=== PATIENT | male | born 1960 | race Caucasian/White ===

== ENCOUNTER 2017-03-26 14:24 | Inpatient (IN) | payer BC ==
[2017-03-26] MEDS ORDERED: Insulin REGULAR(*) 1 UNITS UNIT ONE (14:34)
[2017-03-26] MEDS ORDERED: Insulin REGULAR(*) 1 UNITS UNIT IV PUSH ONE (14:35)
[2017-03-26] MEDS: NS 0.9% 1000 ML* 2,000 ML IV ONE ×2 (14:36→14:53)
[2017-03-26] MEDS ORDERED: NS 0.9% 1000 ML* 3,000 ML IV ONE ×2 (14:50)
[2017-03-26 14:52] LABS: PCO2 Arterial < 20 mmHg (35-45)
[2017-03-26] MEDS: Insulin REGULAR(*) 100 UNITS in NS 0.9% 100 ML* 100 ML IV SCH (14:53)
[2017-03-26 14:56] LABS: ALT 12 U/L (7-52); AST 11 U/L (13-39); Albumin 3.7 g/dL (3.2-5.2); Alkaline Phosphatase 121 U/L (34-104); BUN/Creatinine Ratio 19.1 (8-20); Blood Urea Nitrogen 74 mg/dL (6-24); Calcium 9.3 mg/dL (8.6-10.3); Chloride 79 mmol/L (101-111); Creatine Kinase 61 U/L (10-223); EGFR African American 20.9 (>60); EGFR Non-African American 16.3 (>60); Globulin 2.8 g/dL (2-4); Magnesium 3.8 mg/dL (1.9-2.7); Sodium 123 mmol/L (133-145); Total Protein 6.5 g/dL (6.4-8.9)
[2017-03-26 14:57] LABS: Ammonia 49 mol/L (16-53)
[2017-03-26 15:00] LABS: B Type Natriuretic Peptide 233 pg/mL
[2017-03-26] MEDS ORDERED: fentaNYL* 50 MCG/ML 2 ML VIAL (100 MCG VIAL) ONE (15:04)
[2017-03-26] MEDS ORDERED: fentaNYL* 50 MCG/ML 2 ML VIAL (100 MCG VIAL) IV SLOW PU ONE ×2 (15:06→15:41)
[2017-03-26 15:15] LABS: Lipase 850 U/L (11.0-82.0)
[2017-03-26 15:16] LABS: CO2 Carbon Dioxide < 7 mmol/L (22-32); Glucose 1686 mg/dL (70-100); Potassium 7.5 mmol/L (3.5-5.0)
--- NOTE | 2017-03-26 15:17 | RAD ---
INDICATION: Altered mental status COMPARISON: None TECHNIQUE: An AP portable view obtained at 1450 hours is submitted. FINDINGS: Bones/Soft Tissues: There are no acute bony findings. There is no endotracheal tube in satisfactory position 4 cm above the betty. An orogastric tube passes normally through the mediastinum. Cardiomediastinal: The cardiomediastinal silhouette is normal. Lungs: There are no infiltrates. Pleura: There are no pleural effusions. Other: None IMPRESSION: ENDOTRACHEAL AND OROGASTRIC TUBES POSITIONED DESCRIBED. LUNGS CLEAR
[2017-03-26 15:21] LABS: Hematocrit 56 % (42-52); Hemoglobin 14.8 g/dl (14.0-18.0); Mean Corpuscular HGB Conc 27 g/dl (31-36); Mean Corpuscular Hemoglobin 30 pg (27-31); Mean Platelet Volume 10 um3 (7.4-10.4); Red Blood Count 4.93 10^6/ul (4.0-5.4); Red Cell Distribution Width 15 % (10.5-15); White Blood Count 25.2 10^3/ul (3.5-10.8)
[2017-03-26 15:23] LABS: Acetaminophen < 15 mcg/mL; Alcohol < 10 mg/dL (<10); Comments Flag Yes; Salicylate < 2.50 mg/dL (<30)
[2017-03-26 15:24] LABS: Urine Bacteria Absent (Absent); Urine Bilirubin Negative (Negative); Urine Glucose 3+(>=500 mg/dL) (Negative); Urine Nitrite Negative (Negative)
[2017-03-26 15:24] LABS: Add Diff/Slide Review? Slide Review Added; Mean Corpuscular Volume 113 fL (80-94)
[2017-03-26 15:25] LABS: Benzodiazepine Urine Screen None Detected (None Detect)
[2017-03-26 15:34] LABS: TSH (Thyroid Stimulating Horm) 2.28 mcIU/mL (0.34-5.60)
--- NOTE | 2017-03-26 15:34 | RAD ---
HISTORY: Unresponsive, possible diabetic ketoacidosis COMPARISONS: None TECHNIQUE: Multiple contiguous axial CT scans were obtained of the head without intravenous contrast. FINDINGS: HEMORRHAGE/INFARCT: There is no hemorrhage or acute infarct. MASSES/SHIFT: There is no mass or shift. EXTRA-AXIAL SPACES: There are no extra-axial fluid collections. SULCI AND VENTRICLES: The sulci and ventricles are normal in size and position for the patient's stated age. CEREBRUM: There are no focal parenchymal abnormalities. BRAINSTEM: There are no focal parenchymal abnormalities. CEREBELLUM: There are no focal parenchymal abnormalities. VESSELS: The vessels are grossly normal. PARANASAL SINUSES: There is mucosal thickening of the ethmoid air cells. ORBITS: The orbits are unremarkable. BONES AND SOFT TISSUE: No bone or soft tissue abnormalities are noted. OTHER: None IMPRESSION: NO ACUTE INTRACRANIAL PATHOLOGY.
--- NOTE | 2017-03-26 15:35 | HP ---
H&P (Free Text) History and Physical: CRITICAL CARE MEDICINE DATE: 03/26/17 TIME: 1440 PRIMARY CARE PROVIDER: in [place] REFERRING PROVIDER: Kristina REASON/CHIEF COMPLAINT: dka? HISTORY OF PRESENT ILLNESS: 57 type 1 DM presenting with unresponisve call at his ex-wifes house. According to her, pt came to stay with her last night and had been using more insulin lately as his sugars were apparently high. She saw him last pm and thought he was ok but not perfect. She was in hospital with boyfriend last pm and home around 2am and thought again he was ok. This am he was staggering about and not making a lot of sense to her. He went to lay down in bad and was heavily breathing but less responsive. She called her daughter, Maritza, pts proxy and EMS summoned. Pt with poor responses in field given 250mg ketamine but advanced airway unable to be passed. Procedure deferred to ED. ON presentation pt with some non-purposeful movement and moaning to pain but not protecting airway. About 2L NS in and intubation performed to maintain airway. REVIEW OF SYSTEMS: As per HPI. PAST MEDICAL HISTORY: As per HPI. DM, marijuna use in past. depression. htn. MEDICATIONS: Reviewed. Daughter states he is taking lantus, metoprolol? but will need to confirm meds ALLERGIES: Reviewed. None. SOCIAL HISTORY: Reviewed. 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 PHYSICAL EXAM: Vital Signs: Reviewed. Neurologic: coma; GCS <8. HEENT: anicteric, pupils small but reactive and eq Cardiovascular: tachy 130s, no m Respiratory: rhonchi on R; tachypnea inc with more fluids. R pectorial scarring Abdomen: accessory muscle use otherwise no masses. Extremities: warm, dry; poor skin hygiene Access: 2 piv LABS: Reviewed. IMAGING: Reviewed. MEDICATIONS: Reviewed. ASSESSMENT: 57 M severe DKA with coma on admission MARY ALICE - much of this prerenal LA sec to above Leukocytosis, lipase, troponin, K all elevated sec to above PLAN: Neurologic: check head CT given speed to his coma and ensure no intracranial ailemnt as exam limited. prop for comfort. Cardiovascular: Malperfused. Intravascular < Interstitially < Cellularly volume deficient. NS 8L, then LR, and then towards D51/2NS during his course. T mild given acidosis. can eval one again later but unlikely anything type 1. needs central access Respiratory: needing airway given aspiration and poor airway control and lacking compensation. Allow larger volumes and protect with pressure to avoid vili. May blossum from aspiration but cxr ok at present. vent bundle. Gastrointestinal: ogt. sup. Renal/Metabolic: Electrolyte derangement. f/u LA clearance and K, phos replacement. yeager. Infectious Disease: no signs of empiric abx needs as DKA seems to be primary without any evidence towards infection. could meet criteria for pancreatitis but tx same for now and see how he does clinically as again doubt this is primary, nor would it need abx. CXR clear. UA neg. can check rapid flu due to timing. Hematology: Hemoconcentrated. hsq Endocrine: insulin gtt and dka management per orders. Musculoskeletal: bedrest today. Psych/Social: ex , and daughter updated via phone. Supportive and preventative care as ordered. Vaccine: f/u needs SUP: ppi VTE prophylaxis: heparin Yeager catheter given critical illness, monitoring needs for accurate assessment of MARY ALICE and KDIGO criteria for critically ill patients and to avoid potential harms of urinary retention, skin breakdown/ulcers. Disposition: ICU Code Status: Full Critical Care Time: 55min Arun Arroyo DO
[2017-03-26 15:37] LABS: Troponin I 0.06 ng/mL (<0.04)
[2017-03-26] MEDS ORDERED: Midazolam* 1 MG/ML 10 ML VIAL (10 MG) IV ONE (15:41)
[2017-03-26] MEDS ORDERED: Acetaminophen ADULT LIQ* 650 MG/20.3 ML UDC PO PRN (15:43)
[2017-03-26] MEDS ORDERED: fentaNYL* 50 MCG/ML 2 ML VIAL (100 MCG VIAL) IV SLOW PU PRN (15:44)
[2017-03-26] MEDS ORDERED: Midazolam* 1 MG/ML 10 ML VIAL (10 MG) ONE (15:48)
[2017-03-26] MEDS ORDERED: Propofol* 100 ML ONE (15:49)
--- NOTE | 2017-03-26 15:56 | ED ---
Luis Angel Oquendo Benjamin, scribed for Dannie Acevedo MD on 03/26/17 at 1457 . Altered Mental Status - HPI Summary HPI Summary: 57yo male BIBA for AMS. Pt was found confused and obtunded by family this morning. Pt was last seen normal last night and family called 911 as pt was unresponsive even to stimuli. Unknown downtime. Per EMS report, pt was found unresponsive but agitated. Pt was unresponsive to painful stimuli and 250mg ketamine and 1000ml IV NS was given. No signs of trauma were noted. Pt is a known DM1 pt, and per family, pt has been struggling with high BG the last few days and pt seemed slightly altered last night. Intubation was attempted by EMS , but unable to intubate since pts airway was too dry. Initial O2 sat was 66% . Per family, no evidence of trauma or overdose. 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 Hx From Patient Unobtainable Due To: Altered Mental Status - LEVEL 5 CAVEAT - AMS, unresponsive Onset/Duration: Unknown Severity Initially: Severe Severity Currently: Severe Character: Responsiveness - unresponsive Aggravating Factor(s): Unknown Alleviating Factor(s): Unknown - Risk Factors Cardiac Risk Factors: Diabetes - DM1 - Allergies/Home Medications Allergies/Adverse Reactions: Allergies Allergy/AdvReac Type Severity Reaction Status Date / Time No Known Allergies Allergy Verified 03/26/17 14:32 PMH/Surg Hx/FS Hx/Imm Hx Endocrine/Hematology History: Reports: Hx Diabetes - DM1 Cardiovascular History: Reports: Hx Hypertension Denies: Hx Pacemaker/ICD Sensory History: Denies: Hx Hearing Aid Psychiatric History: Reports: Hx Depression Denies: Hx Eating Disorder, Hx Panic Disorder, Hx of Violent Episodes Against Others - Surgical History Surgery Procedure, Year, and Place: LT HAND SURGERY. LSP SURGERY. RT KNEE SURGERY Infectious Disease History: No Infectious Disease History: Denies: Hx Clostridium Difficile, Hx Hepatitis, Hx Human Immunodeficiency Virus (HIV), Hx Tuberculosis, Traveled Outside the [place] in Last 30 Days - Family History Known Family History: Positive: Unknown - LEVEL 5 CAVEAT - AMS, unresponsive - Social History Alcohol Use: Rare Alcohol Amount: 3 beers per month Substance Use Type: Reports: Marijuana Hx Tobacco Use: Yes Smoking Status (MU): Heavy Every Day Tobacco Smoker Type: Cigarettes Have You Smoked in the Last Year: Yes Review of Systems - ROS Summary Review of Systems Summary: LEVEL 5 CAVEAT - AMS, unresponsive All Other Systems Reviewed And Are Negative: No Physical Exam - Summary Physical Exam Summary: LEVEL 5 CAVEAT - AMS, unresponsive General: obtunded Eyes: pupils are 4mm wide and unreactive to light Neck: supple, nontender Respiratory: Edgar maul breathing, lungs clear Cardiovascular: Tachycardia Abdomen: soft, nontender, non-distended Bowel: hypoactive bowel sounds Musculoskeletal: normal, strength/ROM intact. Moves all four extremities Neurological: AMS Triage Information Reviewed: Yes Vital Signs On Initial Exam: Initial Vitals Temp Pulse Resp BP Pulse Ox 99.1 F 137 40 150/89 95 03/26/17 14:28 03/26/17 14:28 03/26/17 14:28 03/26/17 14:28 03/26/17 14:28 Vital Signs Reviewed: Yes Procedures - Procedure Summary Procedure Summary: Procedure note - Intubation Pt was not protecting his airway. So he was given 10mg versed IV and was intubated with #8 ET tube. 22cm at the gum and pt had good color change. Breath sound was heard bilaterally. Diagnostics - Vital Signs Vital Signs Temp Pulse Resp BP Pulse Ox 03/26/17 14:33 133 28 134/115 99 03/26/17 14:31 75 27 97 03/26/17 14:28 99.1 F 137 40 150/89 95 - Laboratory Lab Results: Lab Results 03/26/17 Range/Units 14:30 ABG pH Pending ABG pCO2 Pending ABG pO2 213 H (80-100) mmHg ABG HCO3 Pending ABG O2 Saturation 99.4 H (95-98) % ABG Base Excess -26.2 L (-2.0-2.0) Result Diagrams: 03/26/17 14:30 03/26/17 14:30 Lab Statement: Any lab studies that have been ordered have been reviewed, and results considered in the medical decision making process. Altered Mental Statu Course/Dx - Course Course Of Treatment: INTUBATED ET TUBE SIZE 8. ADMIT ICU. DR ARAGON SAW PATIENT IN ED. - Diagnoses Discharge Diagnoses: DKA (diabetic ketoacidoses), Respiratory failure - Critical Care Time Critical Care Time: 30-74 min Discharge - Discharge Plan Condition: Guarded Disposition: ADMITTED TO [facility] documentation as recorded by the Luis Angel mueller Benjamin accurately reflects the service I personally performed and the decisions made by me, Dannie Acevedo MD.
[2017-03-26 15:57] LABS: Immature Granulocytes 16 % (0-9); Neutrophil % 74 % (38-83); RBC Morphology Normal (Normal)
[2017-03-26] MEDS: NS 0.9% 1000 ML* 1,000 ML IV SCH ×2 (16:21→17:16)
--- NOTE | 2017-03-26 16:22 | PN ---
Progress Note - Progress Note Date of Service: 03/26/17 Note: CRITICAL CARE MEDICINE PROCEDURE NOTE DATE: 03/26/17 TIME: 1600 SERVICE: Critical Care Medicine LOCATION OF PROCEDURE: ICU PROCEDURE: Central line insertion PROCEDURALIST: Dr. Arroyo Consent obtain: No, procedure performed emergently Time out held: Yes INDICATION: severe dka, needing fluid resuscitation and frequent labs in critical pt. PROCEDURE: Oxygenation maintained and vitals monitored. Patient in trendelenberg position. Pre-medication already with intubation. SITE: RIGHT Subclavian Site preparation with chlorhexidine locally. Full sterile drape, gown, hat, mask, gloves. 5ml 1% Lidocaine utilized at incision site. required two sticks with step down on clavical. Standard sterile Seldinger technique utilized and catheter was inserted to 16cm and sutured in place. Good blood return. Minimal blood loss. Site dressed with tegaderm. Portable chest x-ray pending. Patient otherwise tolerated well. Arun Arroyo,
--- NOTE | 2017-03-26 17:07 | RAD ---
HISTORY: Status post right subclavian line placement COMPARISONS: March 26, 2017 at 2:49 PM VIEWS: 1: frontal portable view of the chest at 4:33 PM FINDINGS: LINES AND TUBES: An endotracheal tube is noted with the tip overlying the trachea between the clavicles and the betty. A gastric tube is noted, with the tip in the left upper quadrant in a prepyloric position.. A right subclavian venous catheter is noted with the tip overlying the superior vena cava. CARDIOMEDIASTINAL SILHOUETTE: The cardiomediastinal silhouette is normal for portable technique. PLEURA: There is a right apical pleural cap new from the previous examination. LUNG PARENCHYMA: The lungs are clear. ABDOMEN: The upper abdomen is clear. There is no subphrenic gas. BONES AND SOFT TISSUES: No bone or soft tissue abnormalities are noted. IMPRESSION: THERE HAS BEEN INTERVAL PLACEMENT OF A RIGHT-SIDED VENOUS CATHETER WITH A RIGHT APICAL PLEURAL CAP CONCERNING FOR HEMATOMA. PRELIMINARY FINDINGS WERE DISCUSSED WITH DR. ARAGON AT APPROXIMATELY 5:03 PM ON MARCH 26, 2017.
[2017-03-26] MEDS: Propofol* 100 ML IV SCH ×3 (17:16→22:34)
[2017-03-26] MEDS: Pantoprazole IV* 40 MG IV SCH (17:47)
[2017-03-26] MEDS: Chlorhexidine MOUTHWASH 0.12%* 15 ML UDC TOPICAL SCH ×2 (17:53→20:09)
[2017-03-26 18:36] LABS: Venous Bicarbonate HCO3 11.2 mmol/L (24-28)
[2017-03-26 18:50] LABS: BUN/Creatinine Ratio 22.4 (8-20); Calcium 7.3 mg/dL (8.6-10.3); EGFR African American 31.4 (>60); EGFR Non-African American 24.4 (>60)
[2017-03-26] MEDS: Heparin VIAL(*) 5000 UNITS/ML VIAL (FIVE THOUSAND) SUBCUT SCH (21:42)
[2017-03-26 22:10] LABS: BUN/Creatinine Ratio 22.6 (8-20); EGFR African American 34.3 (>60); EGFR Non-African American 26.7 (>60); Phosphorus 3.6 mg/dL (2.5-5.0); Potassium 4.4 mmol/L (3.5-5.0)
[2017-03-26] MEDS: D5W 1/2 NS KCl 20 Meq 1000 ML* 1,000 ML IV SCH (23:11)
[2017-03-27] MEDS: Propofol* 100 ML IV SCH ×4 (01:11→08:36)
[2017-03-27] MEDS: Chlorhexidine MOUTHWASH 0.12%* 15 ML UDC TOPICAL SCH ×3 (01:16→09:38)
[2017-03-27] MEDS: Insulin REGULAR(*) 100 UNITS in NS 0.9% 100 ML* 100 ML IV SCH (01:48)
[2017-03-27 05:29] LABS: Hematocrit 41 % (42-52); Hemoglobin 13.8 g/dl (14.0-18.0); Mean Corpuscular HGB Conc 34 g/dl (31-36); Mean Corpuscular Hemoglobin 30 pg (27-31); Mean Corpuscular Volume 89 fL (80-94); Mean Platelet Volume 9 um3 (7.4-10.4); Red Blood Count 4.57 10^6/ul (4.0-5.4); Red Cell Distribution Width 14 % (10.5-15); White Blood Count 9.4 10^3/ul (3.5-10.8)
[2017-03-27 05:44] LABS: Albumin 3.1 g/dL (3.2-5.2); BUN/Creatinine Ratio 26.3 (8-20); Calcium 7.9 mg/dL (8.6-10.3); EGFR African American 48.8 (>60); EGFR Non-African American 37.9 (>60); Globulin 2.2 g/dL (2-4); Magnesium 2.9 mg/dL (1.9-2.7); Phosphorus 3.1 mg/dL (2.5-5.0); Potassium 4.5 mmol/L (3.5-5.0); Total Bilirubin 0.2 mg/dL (0.2-1.0); Total Protein 5.3 g/dL (6.4-8.9)
[2017-03-27] MEDS: D5W 1/2 NS KCl 20 Meq 1000 ML* 1,000 ML IV SCH (05:49)
[2017-03-27] MEDS: Heparin VIAL(*) 5000 UNITS/ML VIAL (FIVE THOUSAND) SUBCUT SCH ×3 (05:50→21:34)
[2017-03-27] MEDS ORDERED: Insulin GLARGINE(*) 1 UNITS UNIT SUBCUT SCH (09:00)
[2017-03-27] MEDS: Nicotine PATCH 14 MG/24 HR* PATCH TRANSDERM SCH (09:41)
[2017-03-27] MEDS: Pantoprazole IV* 40 MG IV SCH (09:41)
[2017-03-27] MEDS ORDERED: Albuterol/Ipratropium NEB.SOL* Albuterol 2.5 MG/Ipratropium 0.5 MG 3 ML ONE (10:59)
--- NOTE | 2017-03-27 11:07 | PN ---
Progress Note - Progress Note Date of Service: 03/27/17 Note: CRITICAL CARE MEDICINE DATE: 03/27/17 TIME: 915 PRIMARY CARE PROVIDER: misha Annera Dr. Iyer. SUBJECTIVE: Patient seen and examined. Daughter at bedside. PHYSICAL EXAM: Vital Signs: Reviewed. Neurologic: awakens off prop, not following commands but quite agitated at times and encephalopathy HEENT: anicteric, pupils small but reactive Cardiovascular: reg, no m Respiratory: cler bl; no wheeze, nor rales, good vol. 30% Abdomen: soft, old scaring Extremities: warm Access: R subcl cvc LABS: Reviewed. IMAGING: Reviewed. MEDICATIONS: Reviewed. ASSESSMENT: 57 M severe DKA with coma on admission Metabolic encephalpathy Acute hypoxic resp failure - improved Aspiration pneumonitis MARY ALICE - improving (Cr in dec was 0.93) LA cleared Tobacco abuse DM Neuropathy PLAN: Neurologic: better but some lingering metabolic encephalopathy likely Cardiovascular: better overall hydration. perfused well. fluids adjusted Respiratory: resp status better. underlying copd but corrected as well as can be post aspiration; liberate today. copd adjunctives from there. Gastrointestinal: ogt. sup. Renal/Metabolic: Electrolyte derangement better and mary alice better but still needs fluid today. Infectious Disease: no signs of infection. Hematology: Hemoconcentrated. hsq Endocrine: insulin gtt off and on lantus. ssi q4. f/u pump needs with resumed po. Musculoskeletal: oob later today. Psych/Social: daughter updated Supportive and preventative care as ordered. Vaccine: f/u needs SUP: po later VTE prophylaxis: heparin Underwood catheter given critical illness, monitoring needs for accurate assessment of MARY ALICE and KDIGO criteria for critically ill patients and to avoid potential harms of urinary retention, skin breakdown/ulcers. Disposition: ICU Code Status: Full Critical Care Time: 35min Arun Arroyo DO
[2017-03-27] MEDS ORDERED: Albuterol/Ipratropium NEB.SOL* Albuterol 2.5 MG/Ipratropium 0.5 MG 3 ML INH PRN (11:13)
[2017-03-27] MEDS: Insulin REGULAR(*) 1 UNITS UNIT SUBCUT SCH ×4 (12:19→23:51)
--- NOTE | 2017-03-27 12:32 | RAD ---
Indication: Shortness of breath. Single frontal view of the chest performed at 1110 hours was reviewed. Comparison is made with previous exam dated March 26, 2017. No mediastinal shift is noted. Hyperinflated lung tolentino are noted. No definite alveolar consolidation is noted. Central PICC line is in place. IMPRESSION: HYPERINFLATED LUNG TOLENTINO WITH NO DEFINITE PNEUMONIA.
[2017-03-27] MEDS: NS 0.45% KCl 20 Meq 1000 ML* 1,000 ML IV SCH ×2 (14:34→23:45)
[2017-03-27] MEDS ORDERED: Midazolam* 1 MG/ML 10 ML VIAL (10 MG) ONE (14:42)
[2017-03-27] MEDS ORDERED: Succinylcholine* 20 MG/ML 10 ML VIAL ONE (14:42)
[2017-03-27] MEDS ORDERED: Etomidate* 2 MG/ML 20 ML VIAL (40 MG) ONE (14:42)
[2017-03-27] MEDS ORDERED: traZODone TAB* 100 MG PO PRN (16:19)
[2017-03-27] MEDS ORDERED: LORazepam TAB(*) 1 MG PO PRN (16:20)
[2017-03-27] MEDS ORDERED: Insulin GLARGINE(*) 1 UNITS UNIT SUBCUT ONE (16:30)
[2017-03-27] MEDS: Atorvastatin* 40 MG TAB PO SCH (20:18)
[2017-03-27] MEDS: Nicotine Patch Removal NOTE PATCH OFF SCH (20:18)
[2017-03-28] MEDS: Insulin REGULAR(*) 1 UNITS UNIT SUBCUT SCH ×6 (04:04→20:39)
[2017-03-28] MEDS: Heparin VIAL(*) 5000 UNITS/ML VIAL (FIVE THOUSAND) SUBCUT SCH (06:41)
[2017-03-28 07:13] LABS: Hematocrit 39 % (42-52); Hemoglobin 13.1 g/dl (14.0-18.0); Mean Corpuscular HGB Conc 34 g/dl (31-36); Mean Corpuscular Hemoglobin 30 pg (27-31); Mean Corpuscular Volume 89 fL (80-94); Mean Platelet Volume 9 um3 (7.4-10.4); Red Blood Count 4.35 10^6/ul (4.0-5.4); Red Cell Distribution Width 14 % (10.5-15); White Blood Count 5.8 10^3/ul (3.5-10.8)
[2017-03-28 07:17] LABS: Add Diff/Slide Review? Slide Review Added; Comments Flag Yes
[2017-03-28 07:48] LABS: BUN/Creatinine Ratio 22.8 (8-20); EGFR African American 109.8 (>60); EGFR Non-African American 85.4 (>60); Magnesium 2.4 mg/dL (1.9-2.7); Potassium 3.4 mmol/L (3.5-5.0)
[2017-03-28] MEDS ORDERED: Potassium Phosphate IV* 15 MMOLE in NS 0.9% 250 ML* 250 ML IVPB ONE (08:36)
[2017-03-28] MEDS: Nicotine PATCH 14 MG/24 HR* PATCH TRANSDERM SCH (08:48)
[2017-03-28] MEDS: Aspirin EC Low Dose* 81 MG TAB.EC PO SCH (08:49)
[2017-03-28] MEDS ORDERED: Influenza VAC *QUAD* 2017-18* 0.5 ML SYRINGE IM ONE (09:00)
[2017-03-28] MEDS: Potassium & Sodium Phos 250MG* = 1 PACKET PO SCH ×2 (09:52→20:44)
[2017-03-28] MEDS: Insulin GLARGINE(*) 1 UNITS UNIT SUBCUT SCH (09:52)
[2017-03-28] MEDS: NS 0.45% KCl 20 Meq 1000 ML* 1,000 ML IV SCH ×2 (10:16→21:49)
--- NOTE | 2017-03-28 11:18 | PN ---
Date of Service: 03/28/17 - Critical care progress note/transfer note Critical Care Services: Pt seen and examined at bedside. Pt is alert and oriented and to his normal self. He is out of bed this am. Has been having loose stools. Denies abd pain. Had low grade fever yesterday. Has h/o DM, was recently started oon insulin pump, not very familiar with usage. Was brought into ED for AMS found to be in coma, was intubated for airway protection, extubated and doing well this am. PMH, PSHx, Social history reviewed and unchanged from admission ROS: Reports diarrhea, denies abd pain. Denies sOB, chest pain, headaches, urinary compalints, dizziness Active Medications Generic Name Dose Route Start Last Admin Trade Name Freq PRN Reason Stop Dose Admin Acetaminophen 650 mg 03/26/17 15:43 03/27/17 19:03 Tylenol Adult Liq* PO 650 mg Q6H PRN Administration FEVER Albuterol/Ipratropium 1 neb 03/27/17 11:13 Duoneb (Albuterol 2.5 Mg/Ipratropium 0.5 Mg) INH Q4H PRN SOB/WHEEZING Aspirin 81 mg 03/28/17 09:00 03/28/17 08:49 Aspirin Ec Low Dose* PO 81 mg DAILY ADRIANA Administration Atorvastatin Calcium 40 mg 03/27/17 21:00 03/27/17 20:18 Lipitor* PO 40 mg 2100 ADRIANA Administration Heparin Sodium (Porcine) 1 ml 03/28/17 07:00 03/28/17 06:52 Heparin Flush Picc/Ml/Cvc(*) FLUSH Not Given 0600,1800 [facility] Protocol Potassium Chloride/Sodium Chloride 1,000 mls @ 100 mls/hr 03/27/17 13:00 10:16 Ns 0.45% Kcl 20 Meq 1000 Ml* IV 100 mls/hr PER RATE ADRIANA Administration Potassium Phosphate 15 mmole/ 255 mls @ 42 mls/hr 03/28/17 08:36 03/28/17 09: 57 Sodium Chloride IVPB 03/28/17 14:40 42 mls/hr ONCE ONE Administration Insulin Glargine 60 units 03/28/17 09:00 03/28/17 09:52 Lantus(*) SUBCUT 60 unit Q24H ADRIANA Administration Insulin Human Regular 0 units 03/27/17 12:00 03/28/17 09:28 Insulin Regular(*) SUBCUT Not Given FS Q4 ICU ADRIANA Protocol Lorazepam 1 mg 03/27/17 16:20 Ativan Tab(*) PO Q4H PRN ANXIETY Nicotine 1 patch 03/27/17 09:00 03/28/17 08:48 Nicotine Patch 14 Mg/24 Hr* TRANSDERM 1 patch DAILY ADRIANA Administration Pharmacy Profile Note 1 note 03/27/17 21:00 03/27/17 20:18 Nicotine Patch Removal Note* PATCH OFF 1 note BEDTIME ADRIANA Administration Potassium Phos/Sodium Phos 250 mg 03/28/17 09:00 03/28/17 09:52 Neutra Phos 250 Mg Royce* PO 03/29/17 23:59 250 mg BID ADRIANA Administration Trazodone HCl 100 mg 03/27/17 16:19 Desyrel Tab* PO BEDTIME PRN INSOMNIA Vital Signs: Temp Pulse Resp BP SpO2 FiO2 100.1 F 77 22 134/67 100 35 03/28/17 08:00 03/28/17 10:00 03/28/17 10:00 03/28/17 06:00 03/28/17 10:00 03/27 12:29 Physical Exam: O/E: Pt in NAD HEENT: PERRLA, No JVD Lungs: Diminished air entry, rhonchi + CVS: S1, S2+ Abd: Soft, BS+ Ext: No edema, normal ROM Skin: No rash/bruise Neuro: No focal defecits Fluid Balance (Past 24 Hours): I= 4149 O= 2525 Net 1624 Intake & Output 03/26/17 03/27/17 03/28/17 03/29/17 06:59 06:59 06:59 06:59 Intake Total 8232 4149 1240 Output Total 2075 2525 Balance 6157 1624 1240 Weight 170 lb 6.677 oz 169 lb 5.04 oz Intake: IV Fluids 7669 2378 D5W 1/2 NS 20 meq KCL 1669 2378 Medicated IV 563 171 CC - Insulin 120 5 CC - Propofol/Diprivan 443 166 Oral 0 1600 1240 Output: NG Tube Drainage Amount 550 100 Urine 975 Underwood 1525 700 Liquid Stool 650 Suctioning 100 Other: Date of Last Bowel 03/27/17 Movement # Bowel Movements 1 Estimated Stool Amount Small Labs: Laboratory Results - last 24 hr 03/27/17 03/27/17 03/27/17 12:08 14:18 16:14 WBC RBC Hgb Hct MCV MCH MCHC RDW Plt Count MPV Neut % (Auto) Lymph % (Auto) Wise % (Auto) Eos % (Auto) Baso % (Auto) Absolute Neuts (auto) Absolute Lymphs (auto) Absolute Monos (auto) Absolute Eos (auto) Absolute Basos (auto) Absolute Nucleated RBC Nucleated RBC % Sodium Potassium Chloride Carbon Dioxide Anion Gap BUN Creatinine Est GFR ( Amer) Est GFR (Non-Af Amer) BUN/Creatinine Ratio Glucose POC Glucose (mg/dL) 327 H 258 H 150 H Calcium Phosphorus Magnesium 03/27/17 03/27/17 03/27/17 17:26 20:13 23:50 WBC RBC Hgb Hct MCV MCH MCHC RDW Plt Count MPV Neut % (Auto) Lymph % (Auto) Wise % (Auto) Eos % (Auto) Baso % (Auto) Absolute Neuts (auto) Absolute Lymphs (auto) Absolute Monos (auto) Absolute Eos (auto) Absolute Basos (auto) Absolute Nucleated RBC Nucleated RBC % Sodium Potassium Chloride Carbon Dioxide Anion Gap BUN Creatinine Est GFR ( Amer) Est GFR (Non-Af Amer) BUN/Creatinine Ratio Glucose POC Glucose (mg/dL) 140 H 174 H 148 H Calcium Phosphorus Magnesium 03/28/17 03/28/17 03/28/17 03:58 06:45 06:45 WBC 5.8 RBC 4.35 Hgb 13.1 L Hct 39 L MCV 89 MCH 30 MCHC 34 RDW 14 Plt Count 96 L D MPV 9 Neut % (Auto) 77.3 Lymph % (Auto) 17.6 L Wise % (Auto) 4.6 Eos % (Auto) 0.3 Baso % (Auto) 0.2 Absolute Neuts (auto) 4.5 Absolute Lymphs (auto) 1.0 Absolute Monos (auto) 0.3 Absolute Eos (auto) 0 Absolute Basos (auto) 0 Absolute Nucleated RBC 0 Nucleated RBC % 0.1 Sodium 142 Potassium 3.4 L Chloride 111 Carbon Dioxide 26 Anion Gap 5 BUN 21 Creatinine 0.92 Est GFR ( Amer) 109.8 Est GFR (Non-Af Amer) 85.4 BUN/Creatinine Ratio 22.8 H Glucose 163 H POC Glucose (mg/dL) 255 H Calcium 8.0 L Phosphorus 1.0 L Magnesium 2.4 03/28/17 08:27 WBC RBC Hgb Hct MCV MCH MCHC RDW Plt Count MPV Neut % (Auto) Lymph % (Auto) Wise % (Auto) Eos % (Auto) Baso % (Auto) Absolute Neuts (auto) Absolute Lymphs (auto) Absolute Monos (auto) Absolute Eos (auto) Absolute Basos (auto) Absolute Nucleated RBC Nucleated RBC % Sodium Potassium Chloride Carbon Dioxide Anion Gap BUN Creatinine Est GFR ( Amer) Est GFR (Non-Af Amer) BUN/Creatinine Ratio Glucose POC Glucose (mg/dL) 131 H Calcium Phosphorus Magnesium Studies: CXR: Reviewed, basal atelectasis, no air space opacities Impression: 57 y o m current smoker with h/o DM, recently had insulin pump placement, with difficulty controlling sugars a/w AMS, found to be in coma sec to DKA, was intubated for airway protection, extubated 03/27/17, off insulin pump Severe DKA with coma on admission Metabolic encephalpathy, intubated for airway protection, extubated in 24 hrs Acute hypoxic resp failure - resolved Aspiration pneumonitis MARY ALICE - resolved LA- cleared Tobacco abuse- nicotine patch DM Neuropathy Plan: Neurologic: Mental status at baseline today Cardiovascular: Hemodynamically stable, maintenance fluids Respiratory: Extubated 03/27 after being intubated for airway protection.? underlying copd. On Duoneb, PFTs as out pt Gastrointestinal: Carbohydrate diet, having diarrhea this am- Osmotic versus infectious, will send stool cx and C.diff Renal/Metabolic: Repleted potassium and phosphorus, MARY ALICE- resolved Infectious Disease: No signs of infection. Hematology: Had drop in platelets, likely dilutional, will hold heparin for now and check HIT, will monitor Endocrine: Insulin sliding scale, lantus. f/u pump needs with resumed po. Diabetic education Musculoskeletal: OOB to chair, ambulate as tolerated. Psych/Social: Daughter updated Kj was removed Subclavian line to be removed, peripheral IV access to be placed prior to transfer Can be transferred to regular floor under Dr Thornton`s service D/w Dr Thornton 03/28/17 at 11:00 am, stool w/u, platelts to be monitored, diabetic education and d/c plan as per hospitalist service Critical Care Time: 30 min
[2017-03-28] MEDS: Sodium Chloride FLUSH* 10 ML SYRINGE IV FLUSH SCH ×2 (18:01→22:09)
[2017-03-28] MEDS: Atorvastatin* 40 MG TAB PO SCH (20:44)
[2017-03-28] MEDS: Nicotine Patch Removal NOTE PATCH OFF SCH (20:46)
[2017-03-29] MEDS: Sodium Chloride FLUSH* 10 ML SYRINGE IV FLUSH SCH ×2 (05:29→11:48)
[2017-03-29] MEDS: NS 0.45% KCl 20 Meq 1000 ML* 1,000 ML IV SCH (08:36)
[2017-03-29] MEDS: Insulin GLARGINE(*) 1 UNITS UNIT SUBCUT SCH (09:12)
[2017-03-29] MEDS: Insulin REGULAR(*) 1 UNITS UNIT SUBCUT SCH ×2 (09:12→11:51)
[2017-03-29] MEDS: Nicotine PATCH 14 MG/24 HR* PATCH TRANSDERM SCH (09:12)
[2017-03-29] MEDS: Potassium & Sodium Phos 250MG* = 1 PACKET PO SCH (09:12)
[2017-03-29] MEDS: Aspirin EC Low Dose* 81 MG TAB.EC PO SCH (09:13)
[2017-03-29 12:39] VITALS: BP 150/83
--- NOTE | 2017-03-30 18:54 | PN ---
Hospitalist Progress Note Date of Service: 03/29/17 . HOSPITALIST DISCHARGE NOTE: See dc instructions and summary by me. Patient stable for dc dc instructions reviewed with the patient at the bedside. DC patient home today.
--- NOTE | 2017-03-31 08:52 | DS ---
CC: Dr. Rowan * DISCHARGE SUMMARY: DATE OF ADMISSION: 03/26/17 DATE OF DISCHARGE: 03/29/17 PRIMARY CARE PROVIDER: Dr. Remington Rowan, [place], [place], [address] [facility], [address]. PRINCIPAL DISCHARGE DIAGNOSIS: Diabetic ketoacidosis with coma and status post mechanical ventilation for profound metabolic acidosis and acute respiratory failure - weaned and liberated from ventilator on 03/28/17 with good recovery and establishment of normoglycemia and metabolic normalcy. SECONDARY DIAGNOSES: 1. History of marijuana use. 2. Depression. 3. Hypertension. 4. Type 1 diabetes - on insulin pump (which malfunctioned) HISTORY OF PRESENT ILLNESS AND HOSPITAL COURSE: Please see the H and P by Albin Arroyo DO, linoleum layer helper at [facility]. In brief, Mr. Gonzalez is a 57-year-old type 1 diabetic who came unresponsive to the hospital by fire rescue. The patient was staying with his ex- and was using more insulin as his sugars were apparently high. The patient's ex- thought he was okay, but not himself. The patient was staggering and not making a lot of sense to her. He went to lay down and was breathing heavily and became less responsive. She called her daughter who is the patient's proxy and EMS was summoned. The patient was given 250 mg of ketamine and an advanced airway could not be attained in the field. The patient was brought to the ED and was intubated to maintain his airway status. The patient had profound metabolic derangements including an initial arterial pH of less than 7. His pCO2 was less than 20 on a ventilator when this was drawn. His pO2 was 213 on high flow oxygen and his chemistries were quite concerning with a sodium of 123, potassium of 7.5, bicarb of less than 7, BUN of 74, creatinine of 3.87 with his baseline at less than 1, demonstrating acute renal failure. His glucose was 1600. His lactic acid was 6. His troponin was 0.06. CRP was elevated, lipase was elevated at 850. TSH was preserved. The patient was diagnosed with diabetic ketoacid with coma and with multisystem organ failure including profound renal failure (that took several days to normalize), hyperglycemic state, hyponatremia, and critical hyperkalemia. The patient was ventilated and stabilized on an insulin drip. He slowly recovered and was liberated from the vent on 03/28/17. He was transitioned to injectable insulin and specifically to Lantus 60 units subcutaneously twice daily, most of his other medications were not being actively taken and they were all prescribed and consist of the followin. Amitriptyline 25 mg by mouth daily. 2. Amlodipine 5 mg by mouth daily. 3. Aspirin enteric coated 81 mg by mouth daily. 4. Gabapentin/Neurontin 100 mg by mouth 3 times daily (diabetic neuropathy). 5. Insulin glargine 60 units subcu twice daily. 6. Lisinopril 20 mg by mouth daily. 7. Omeprazole 20 mg by mouth daily. 8. Simvastatin 40 mg by mouth q. p.m. On admission, the patient was taking (reportedly) metoprolol although with insulin dependent diabetes, the effects of hypoglycemia can be masked; and so this was discontinued. The patient reported tense blisters on his right heel and right great toe. These were likely a pressure related and pursuant to his critical illness given his diabetic neuropathy and vasculopathy. It might warrant an outpatient referral to Podiatry or to a wound center but I will defer to Dr. Rowan on this point. I had a long conversion with Mr. Gonzalez who reported his insulin pump failed. He does have history and experience with injecting Lantus and sliding scale and both were ordered through his pharmacy in [place]. I went through a great amount of education with him describing how seriously ill he was and how андрей he was to come through this life threatening event. The patient was accompanied by his daughter and son-in-law, they are a supportive family and they have agreed to a vigilant followup and every attempt should be made to follow up with Dr. Rowan in the next few days. I am hoping that after Dr. Rowan can arrange a followup with Endocrinology regarding the failed insulin pump. Total time taken for discharge Mr. Gonzalez was 55 minutes. The patient was critically ill during this hospitalization and certainly an inpatient status. Etmdiz-yc-IH instructions were carefully given to the patient and his family, and it is expected they will comply, particularly if there are any new or worrisome problem that was not promptly alleviated by routine jukd-yqb-mhmqiao or home therapy. CONDITION AT DISCHARGE: Stable. [id number]/[facility] #: [id number] [facility]ERT[facility]
[2017-03-31 13:02] LABS: Heparin PF4 Ab Reactivity 0.083 OD
[2017-03-31 13:03] LABS: Heparin PF4 Antibody Interp Negative
== END 2017-03-29 14:05 | disposition home or self-care (01) | DRG 420 ==
LOC: ED 14:24 → ICU 14:51 → MED 03-28 15:05
PROVIDERS: ADMIT Internal Medicine Critical Care Medicine; ATTEND Internal Medicine
PROC: 0BH17EZ Insertion of Endotracheal Airway into Trachea, Via Natural or Artificial Opening (ICD-10-PCS; principal; 2017-03-26)
PROC: 5A1935Z Respiratory Ventilation, Less than 24 Consecutive Hours (ICD-10-PCS; 2017-03-26)
PROC: 02HV33Z Insertion of Infusion Device into Superior Vena Cava, Percutaneous Approach (ICD-10-PCS; 2017-03-28)
DX: E10.11 Type 1 diabetes mellitus with ketoacidosis with coma (principal); G93.41 Metabolic encephalopathy; J96.01 Acute respiratory failure with hypoxia; J69.0 Pneumonitis due to inhalation of food and vomit; N17.9 Acute kidney failure, unspecified; E87.1 Hypo-osmolality and hyponatremia; I10 Essential (primary) hypertension; F32.9 Major depressive disorder, single episode, unspecified; F17.210 Nicotine dependence, cigarettes, uncomplicated; D72.829 Elevated white blood cell count, unspecified; E10.40 Type 1 diabetes mellitus with diabetic neuropathy, unspecified; E87.5 Hyperkalemia; Z79.82 Long term (current) use of aspirin; Z79.4 Long term (current) use of insulin; S90.821A Blister (nonthermal), right foot, initial encounter; S90.421A Blister (nonthermal), right great toe, initial encounter; X58.XXXA Exposure to other specified factors, initial encounter; Y92.9 Unspecified place or not applicable
CPT/HCPCS: 36415; 36600; 70450; 71010; 80048; 80053; 80307; 80320; 80329; 81003; 81015; 82140; 82550; 82553; 82803; 82947; 83605; 83690; 83735; 83880; 84100; 84443; 84484; 85025; 85379; 85610; 85730; 86022; 86140; 87045; 87046; 87077; 87493; 87502; 87641; 87899; 90686; 94002; 94760; A9270-GY; G0480; J0330; J1644; J1815; J2250; J2704; J3010; J3480

== ENCOUNTER 2022-02-22 08:05 | Inpatient (IN) ==
[2022-02-22] MEDS ORDERED: Lactated Ringers 1000 ml BAG 1,000 ML IV ONE ×3 (09:50→11:27)
[2022-02-22 10:19] LABS: Hematocrit 49 % (42-52); Hemoglobin 15.9 g/dL (14.0-18.0); Mean Corpuscular HGB Conc 32 g/dL (31-36); Mean Corpuscular Hemoglobin 29 pg (27-31); Mean Corpuscular Volume 90 fL (80-94); Mean Platelet Volume 10.3 fL (7.4-10.4); Platelet Count 311 10^3/uL (150-450); Red Cell Distribution Width 13 % (10-15)
[2022-02-22 11:10] LABS: ALT 18 U/L (7-52); AST 16 U/L (13-39); Albumin 3.7 g/dL (3.2-5.2); Albumin/Globulin Ratio 1.3 (1-3); Alcohol, S < 13 mg/dL (<13); Alkaline Phosphatase 113 U/L (35-149); Blood Urea Nitrogen 41 mg/dL (6-24); Calcium 9.2 mg/dL (8.6-10.3); Chloride 92 mmol/L (101-111); Globulin 2.8 g/dL (2-4); Lipase 18 U/L (11.0-82.0); Magnesium 2.3 mg/dL (1.9-2.7); Sodium 131 mmol/L (135-145); Total Protein 6.5 g/dL (6.4-8.9); eGFR CKD-EPI 45.5 (>60)
[2022-02-22 11:14] LABS: CO2 Carbon Dioxide < 7 mmol/L (22-32); Glucose 644 mg/dL (70-100); Potassium 6.4 mmol/L (3.5-5.0)
[2022-02-22] MEDS ORDERED: Dextrose 50% Syringe 50 ml 25 GM/50 ML SYRINGE IV PUSH PRN ×2 (11:15→11:27)
[2022-02-22] MEDS ORDERED: Insulin Infusion 100unit/100mL 100 UNIT/100 ML BAG IV ONE (11:16)
[2022-02-22 11:41] LABS: ABS Basophils 0.2 10^3/ul (0-0.2); ABS Eosinophils 0.1 10^3/ul (0-0.6); ABS Lymphocytes 1.7 10^3/ul (1.0-4.8); ABS Monocytes 0.7 10^3/ul (0-0.8); ABS Neutrophils 24.4 10^3/ul (1.5-7.7); Eosinophil % 0.2 %; Lymphocyte % 6.4 %; Nucleated Red Blood Cells % 0.1
[2022-02-22] MEDS ORDERED: D5W 1/2 NS 1000 ml BAG 1,000 ML IV SCH (12:00)
[2022-02-22] MEDS ORDERED: Insulin Infusion 100unit/100mL 100 UNIT/100 ML BAG IV SCH (12:00)
[2022-02-22 12:41] LABS: TSH Ultra Thyroid Stim Horm 1.24 mcIU/mL (0.34-5.60)
[2022-02-22] MEDS ORDERED: hydrALAZINE 20 mg/ml 1 ML Vial IV IV SLOW PU ONE (12:54)
[2022-02-22] MEDS ORDERED: NORMOSOL-R pH 7.4 1000 mL BAG 1,000 ML IV SCH (13:00)
[2022-02-22 13:05] LABS: Magnesium 2.2 mg/dL (1.9-2.7)
[2022-02-22 13:11] LABS: Phosphorus 6.9 mg/dL (2.5-5.0)
[2022-02-22 13:29] LABS: C Reactive Protein 16.53 mg/L (<8.01)
[2022-02-22] MEDS: Enoxaparin 40 MG/0.4 ML SYR SUBCUT SCH (13:59)
[2022-02-22 14:04] LABS: Urine Appearance Clear; Urine Bilirubin Negative (Negative); Urine Blood 1+ (Negative); Urine Color Yellow; Urine Glucose 3+(>=500 mg/dL) (Negative); Urine Ketones 2+ (Negative); Urine Nitrite Negative (Negative); Urine Protein 1+(30 mg/dL) (Negative); Urine Specific Gravity 1.021 (1.002-1.030); Urine Urobilinogen Negative (Negative)
[2022-02-22 14:09] LABS: Urine Bacteria Absent (Absent); Urine Red Blood Cell Trace(0-2/hpf) (Absent); Urine White Blood Cell Trace(0-5/hpf) (Absent)
[2022-02-22 14:42] LABS: High Sensitivity Troponin 1 Hr 64 pg/mL (<20)
[2022-02-22] MEDS ORDERED: Metoprolol Tartrate 5 mg VIAL 5 ml VIAL (1 mg/ml) IV ONE (14:54)
[2022-02-22 14:56] LABS: Erythrocyte Sed Rate 15 mm/Hr (0-19)
[2022-02-22 15:14] LABS: Blood Urea Nitrogen 43 mg/dL (6-24); Calcium 9.1 mg/dL (8.6-10.3); Chloride 94 mmol/L (101-111); Sodium 133 mmol/L (135-145); eGFR CKD-EPI 36.9 (>60)
[2022-02-22] MEDS ORDERED: Metoprolol Tartrate 5 mg VIAL 5 ml VIAL (1 mg/ml) ONE (15:14)
[2022-02-22 15:17] LABS: CO2 Carbon Dioxide < 7 mmol/L (22-32); Glucose 616 mg/dL (70-100)
[2022-02-22 15:18] LABS: Potassium 5.2 mmol/L (3.5-5.0)
[2022-02-22] MEDS ORDERED: Piperacillin/Tazobac ADVAN 3.375 GM in NS 0.9% 100 ml BAG 100 ML IV ONE (15:28)
[2022-02-22 15:55] LABS: High Sensitivity Troponin 3 Hr 218 pg/mL (<20)
[2022-02-22] MEDS ORDERED: KCL 20 MEQ/100 ML IVPREMIX 20 MEQ/100 ML BAG IV ONE (16:00)
[2022-02-22] MEDS ORDERED: Zosyn per Pharmacy NOTE FOLLOW UP SCH (16:00)
[2022-02-22 16:24] LABS: Blood Urea Nitrogen 41 mg/dL (6-24); Calcium 8.6 mg/dL (8.6-10.3); Chloride 97 mmol/L (101-111); Glucose 487 mg/dL (70-100); Magnesium 2.3 mg/dL (1.9-2.7); Phosphorus 6.1 mg/dL (2.5-5.0); Potassium 4.6 mmol/L (3.5-5.0); Sodium 134 mmol/L (135-145); eGFR CKD-EPI 40.9 (>60)
[2022-02-22 16:38] LABS: CO2 Carbon Dioxide < 7 mmol/L (22-32)
[2022-02-22 21:03] LABS: Calcium 7.6 mg/dL (8.6-10.3); Magnesium 1.9 mg/dL (1.9-2.7); Phosphorus 2.5 mg/dL (2.5-5.0); Potassium 4.5 mmol/L (3.5-5.0); eGFR CKD-EPI 56.9 (>60)
[2022-02-22] MEDS: D5W 20 MEQ KCL 1000 ml BAG 1,000 ML IV SCH (21:03)
[2022-02-22] MEDS: ZOSYN 3.375 GM Q8H per EXTENDED INFUSION IV SCH (21:30)
[2022-02-23 04:38] LABS: Calcium 7.5 mg/dL (8.6-10.3); Magnesium 1.9 mg/dL (1.9-2.7); Phosphorus 2.3 mg/dL (2.5-5.0); Potassium 3.9 mmol/L (3.5-5.0); eGFR CKD-EPI 64.5 (>60)
[2022-02-23] MEDS: D5W 20 MEQ KCL 1000 ml BAG 1,000 ML IV SCH ×2 (04:42→12:54)
[2022-02-23 06:10] LABS: ABS Basophils 0.1 10^3/ul (0-0.2); ABS Eosinophils 0.2 10^3/ul (0-0.6); ABS Lymphocytes 2.2 10^3/ul (1.0-4.8); ABS Monocytes 0.7 10^3/ul (0-0.8); ABS Neutrophils 13.2 10^3/ul (1.5-7.7); Eosinophil % 0.9 %; Hematocrit 40 % (42-52); Hemoglobin 13.5 g/dL (14.0-18.0); Lymphocyte % 13.5 %; Mean Corpuscular HGB Conc 34 g/dL (31-36); Mean Corpuscular Hemoglobin 29 pg (27-31); Mean Corpuscular Volume 85 fL (80-94); Mean Platelet Volume 8.4 fL (7.4-10.4); Platelet Count 181 10^3/uL (150-450); Red Blood Count 4.67 10^6 /uL (4.18-5.48); Red Cell Distribution Width 14 % (10-15); White Blood Count 16.4 10^3/uL (3.5-10.8)
[2022-02-23 06:43] LABS: HDL Cholesterol 41.6 mg/dL
[2022-02-23] MEDS: ZOSYN 3.375 GM Q8H per EXTENDED INFUSION IV SCH ×3 (07:27→15:23)
[2022-02-23 08:12] LABS: Calcium 7.6 mg/dL (8.6-10.3); Magnesium 1.9 mg/dL (1.9-2.7); Potassium 3.9 mmol/L (3.5-5.0); eGFR CKD-EPI 71.8 (>60)
[2022-02-23] MEDS ORDERED: Insulin GLARGINE 100 un/ml 10 ml VIAL SUBCUT ONE (10:24)
[2022-02-23] MEDS ORDERED: Dextrose 50% Syringe 50 ml 25 GM/50 ML SYRINGE IV PUSH PRN ×2 (12:27→17:14)
[2022-02-23 13:29] LABS: Calcium 7.7 mg/dL (8.6-10.3); Magnesium 1.9 mg/dL (1.9-2.7); Potassium 4.8 mmol/L (3.5-5.0); eGFR CKD-EPI 72.6 (>60)
[2022-02-23] MEDS: Enoxaparin 40 MG/0.4 ML SYR SUBCUT SCH (15:22)
[2022-02-23 16:29] LABS: Calcium 7.6 mg/dL (8.6-10.3); Potassium 4.6 mmol/L (3.5-5.0); eGFR CKD-EPI 79.1 (>60)
[2022-02-23 21:02] LABS: Calcium 7.8 mg/dL (8.6-10.3); Potassium 4.2 mmol/L (3.5-5.0); eGFR CKD-EPI 75.7 (>60)
[2022-02-24] MEDS: ZOSYN 3.375 GM Q8H per EXTENDED INFUSION IV SCH ×4 (00:34→23:29)
[2022-02-24 05:21] LABS: Hematocrit 43 % (42-52); Hemoglobin 14.4 g/dL (14.0-18.0); Mean Corpuscular HGB Conc 34 g/dL (31-36); Mean Corpuscular Hemoglobin 29 pg (27-31); Mean Corpuscular Volume 86 fL (80-94); Mean Platelet Volume 8.6 fL (7.4-10.4); Platelet Count 149 10^3/uL (150-450); Red Blood Count 4.99 10^6 /uL (4.18-5.48); Red Cell Distribution Width 14 % (10-15); White Blood Count 8.9 10^3/uL (3.5-10.8)
[2022-02-24 05:54] LABS: Calcium 7.8 mg/dL (8.6-10.3); eGFR CKD-EPI 93.4 (>60)
[2022-02-24] MEDS ORDERED: Labetalol IV 5 MG/ML 20 ml VIAL IV PUSH ONE (06:01)
[2022-02-24] MEDS ORDERED: Iodixanol (CONTRAST) 320 MG/ML 100 ML SDV IV ONE (10:06)
[2022-02-24] MEDS: Insulin GLARGINE 100 un/ml 10 ml VIAL SUBCUT SCH (11:42)
[2022-02-24] MEDS: Enoxaparin 40 MG/0.4 ML SYR SUBCUT SCH (14:34)
[2022-02-24 21:48] LABS: Glucose Confirmatory 434 mg/dL (70-100)
[2022-02-24] MEDS ORDERED: Dextrose 50% Syringe 50 ml 25 GM/50 ML SYRINGE IV PUSH PRN (21:57)
[2022-02-24 22:41] LABS: Albumin 3.4 g/dL (3.2-5.2); Albumin/Globulin Ratio 1.5 (1-3); Calcium 8.3 mg/dL (8.6-10.3); Globulin 2.3 g/dL (2-4); Potassium 4.1 mmol/L (3.5-5.0); Total Bilirubin 0.4 mg/dL (0.2-1.0); Total Protein 5.7 g/dL (6.4-8.9); eGFR CKD-EPI 67.6 (>60)
[2022-02-25 05:17] LABS: ABS Basophils 0.1 10^3/ul (0-0.2); ABS Eosinophils 0.2 10^3/ul (0-0.6); ABS Monocytes 0.4 10^3/ul (0-0.8); ABS Neutrophils 5.2 10^3/ul (1.5-7.7); Hematocrit 44 % (42-52); Hemoglobin 15.1 g/dL (14.0-18.0); Lymphocyte % 25.1 %; Mean Corpuscular HGB Conc 34 g/dL (31-36); Mean Corpuscular Hemoglobin 29 pg (27-31); Mean Corpuscular Volume 85 fL (80-94); Mean Platelet Volume 8.3 fL (7.4-10.4); Platelet Count 152 10^3/uL (150-450); Red Blood Count 5.19 10^6 /uL (4.18-5.48); Red Cell Distribution Width 13 % (10-15); White Blood Count 7.8 10^3/uL (3.5-10.8)
[2022-02-25 05:36] LABS: Calcium 8.2 mg/dL (8.6-10.3); Potassium 3.6 mmol/L (3.5-5.0)
[2022-02-25 05:42] LABS: eGFR CKD-EPI 95.8 (>60)
[2022-02-25] MEDS: ZOSYN 3.375 GM Q8H per EXTENDED INFUSION IV SCH (07:53)
[2022-02-25] MEDS: Insulin GLARGINE 100 un/ml 10 ml VIAL SUBCUT SCH (07:54)
[2022-02-25 08:31] VITALS: BP 152/111
[2022-02-25] MEDS ORDERED: Potassium Chlor 20 meq TAB.ER PO ONE (09:12)
[2022-02-25] MEDS: Enoxaparin 40 MG/0.4 ML SYR SUBCUT SCH (14:30)
== END 2022-02-25 13:15 | disposition home or self-care (01) | DRG 420 ==
LOC: ED 08:05 → ICU 09:48 → EDHOLD 13:05 → ICU 17:40
PROVIDERS: ADMIT Surgery Surgical Critical Care; ATTEND Surgery Surgical Critical Care

== ENCOUNTER 2022-06-19 17:27 | Inpatient (IN) ==
[2022-06-19] MEDS ORDERED: Ondansetron 4 mg VIAL 2 MG/ML 2 ml VIAL IV ONE (17:35)
[2022-06-19] MEDS ORDERED: NORMOSOL-R pH 7.4 1000 mL BAG 1,000 ML IV ONE (17:36)
[2022-06-19 18:00] LABS: Venous Bicarbonate HCO3 11.1 mmol/L (24-28)
[2022-06-19 18:06] LABS: ABS Basophils 0.1 10^3/ul (0-0.2); ABS Monocytes 0.8 10^3/ul (0-0.8); ABS Neutrophils 18.5 10^3/ul (1.5-7.7); Eosinophil % 0.1 %; Hematocrit 52 % (42-52); Hemoglobin 16.5 g/dL (14.0-18.0); Mean Corpuscular HGB Conc 32 g/dL (31-36); Mean Corpuscular Hemoglobin 30 pg (27-31); Mean Corpuscular Volume 94 fL (80-94); Mean Platelet Volume 9.5 fL (7.4-10.4); Nucleated Red Blood Cells % 0.1; Platelet Count 256 10^3/uL (150-450); Red Blood Count 5.54 10^6 /uL (4.18-5.48); Red Cell Distribution Width 15 % (10-15); White Blood Count 20.4 10^3/uL (3.5-10.8)
[2022-06-19 18:52] LABS: Albumin 4.4 g/dL (3.2-5.2); Albumin/Globulin Ratio 1.7 (1-3); Calcium 9.9 mg/dL (8.6-10.3); Creatinine, Serum 2.36 mg/dL (0.67-1.17); Globulin 2.6 g/dL (2-4); Magnesium 2.7 mg/dL (1.9-2.7); Phosphorus 7.7 mg/dL (2.5-5.0); Potassium 4.6 mmol/L (3.5-5.0); Total Bilirubin 0.4 mg/dL (0.2-1.0); eGFR CKD-EPI 30.7 (>60)
[2022-06-19 18:57] LABS: TSH Ultra Thyroid Stim Horm 1.88 mcIU/mL (0.34-5.60)
[2022-06-19] MEDS ORDERED: niCARdipine 0.1MG/ML IVPREMIX 20 MG/200 ML BAG IV SCH (19:00)
[2022-06-19] MEDS ORDERED: NORMOSOL-R pH 7.4 1000 mL BAG 1,000 ML IV SCH ×2 (19:00→21:00)
[2022-06-19 19:21] LABS: High Sensitivity Troponin 1 Hr 1808 pg/mL (<20)
[2022-06-19 19:48] LABS: Urine Appearance Cloudy; Urine Bilirubin Negative (Negative); Urine Blood 1+ (Negative); Urine Color Yellow; Urine Glucose 3+(>=500 mg/dL) (Negative); Urine Ketones 2+ (Negative); Urine Nitrite Negative (Negative); Urine Protein 1+(30 mg/dL) (Negative); Urine Urobilinogen Negative (Negative)
[2022-06-19 19:54] LABS: Urine Bacteria 1+ (Absent); Urine Red Blood Cell Trace(0-2/hpf) (Absent); Urine White Blood Cell Trace(0-5/hpf) (Absent)
[2022-06-19] MEDS ORDERED: Insulin Infusion 100unit/100mL 100 UNIT/100 ML BAG IV SCH (20:00)
[2022-06-19] MEDS ORDERED: Labetalol IV 5 MG/ML 20 ml VIAL IV PUSH PRN (21:49)
[2022-06-19 22:22] LABS: HDL Cholesterol 75.8 mg/dL
[2022-06-19] MEDS ORDERED: Pantoprazole VIAL 40 MG VIAL IV SCH (23:00)
[2022-06-19 23:14] LABS: C Reactive Protein 19.62 mg/L (<8.01)
[2022-06-19 23:32] LABS: High Sensitivity Troponin 3 Hr 3555 pg/mL (<20)
[2022-06-20 00:58] LABS: Calcium 8.8 mg/dL (8.6-10.3); Potassium 4.1 mmol/L (3.5-5.0)
[2022-06-20 01:03] LABS: Creatinine, Serum 1.73 mg/dL (0.67-1.17); eGFR CKD-EPI 44.6 (>60)
[2022-06-20] MEDS ORDERED: D5W 1/2 NS 1000 ml BAG 1,000 ML IV SCH (02:00)
[2022-06-20 04:17] LABS: Hematocrit 41 % (42-52); Hemoglobin 13.9 g/dL (14.0-18.0); Mean Corpuscular HGB Conc 34 g/dL (31-36); Mean Corpuscular Hemoglobin 30 pg (27-31); Mean Corpuscular Volume 86 fL (80-94); Platelet Count 191 10^3/uL (150-450); Red Blood Count 4.73 10^6 /uL (4.18-5.48); Red Cell Distribution Width 14 % (10-15); White Blood Count 15.9 10^3/uL (3.5-10.8)
[2022-06-20] MEDS ORDERED: Insulin Infusion 100unit/100mL 100 UNIT/100 ML BAG IV SCH ×2 (04:31→05:00)
[2022-06-20 04:54] LABS: Calcium 8.3 mg/dL (8.6-10.3); Creatinine, Serum 1.29 mg/dL (0.67-1.17); Magnesium 2.1 mg/dL (1.9-2.7); Phosphorus 2.9 mg/dL (2.5-5.0); Potassium 3.7 mmol/L (3.5-5.0); eGFR CKD-EPI 63.5 (>60)
[2022-06-20] MEDS ORDERED: D10W 1000 ml BAG 1,000 ML IV SCH ×2 (05:00→08:54)
[2022-06-20 05:34] LABS: ABS Basophils 0.1 10^3/ul (0-0.2); ABS Eosinophils 0.1 10^3/ul (0-0.6); ABS Lymphocytes 1.7 10^3/ul (1.0-4.8); ABS Monocytes 0.8 10^3/ul (0-0.8); ABS Neutrophils 13.2 10^3/ul (1.5-7.7); Eosinophil % 0.5 %; Lymphocyte % 10.8 %; RBC Morphology Normal (Normal)
[2022-06-20 08:58] LABS: Calcium 8.2 mg/dL (8.6-10.3); Creatinine, Serum 1.14 mg/dL (0.67-1.17); eGFR CKD-EPI 73.6 (>60)
[2022-06-20] MEDS: Insulin GLARGINE 100 un/ml 10 ml VIAL SUBCUT SCH (10:40)
[2022-06-20] MEDS: Enoxaparin 40 MG/0.4 ML SYR SUBCUT SCH (10:40)
[2022-06-20 13:53] LABS: Calcium 8.4 mg/dL (8.6-10.3); Creatinine, Serum 1.18 mg/dL (0.67-1.17); Potassium 4.3 mmol/L (3.5-5.0); eGFR CKD-EPI 70.6 (>60)
[2022-06-20] MEDS: Pantoprazole VIAL 40 MG VIAL IV SCH (14:17)
[2022-06-20] MEDS: Calcium Carb (TUMS) 500 mg CHEW TAB PO PRN ×2 (14:17→18:01)
[2022-06-20 17:15] LABS: Calcium 7.9 mg/dL (8.6-10.3); Creatinine, Serum 0.96 mg/dL (0.67-1.17); Potassium 4.2 mmol/L (3.5-5.0); eGFR CKD-EPI 90.5 (>60)
[2022-06-20] MEDS ORDERED: Ondansetron 4 mg VIAL 2 MG/ML 2 ml VIAL IV PRN (18:28)
[2022-06-20] MEDS ORDERED: Nicotine GUM 4MG FRUIT FLAVOR PO PRN (19:12)
[2022-06-20 21:27] LABS: Calcium 8.2 mg/dL (8.6-10.3); Creatinine, Serum 1.02 mg/dL (0.67-1.17); Potassium 4.2 mmol/L (3.5-5.0); eGFR CKD-EPI 84.1 (>60)
[2022-06-21 07:29] LABS: ABS Lymphocytes 1.4 10^3/ul (1.0-4.8); ABS Monocytes 0.4 10^3/ul (0-0.8); ABS Neutrophils 9.6 10^3/ul (1.5-7.7); Eosinophil % 0.2 %; Hematocrit 44 % (42-52); Hemoglobin 14.8 g/dL (14.0-18.0); Lymphocyte % 12.4 %; Mean Corpuscular HGB Conc 34 g/dL (31-36); Mean Corpuscular Hemoglobin 30 pg (27-31); Mean Corpuscular Volume 88 fL (80-94); Mean Platelet Volume 8.6 fL (7.4-10.4); Platelet Count 157 10^3/uL (150-450); Red Blood Count 4.95 10^6 /uL (4.18-5.48); Red Cell Distribution Width 14 % (10-15); White Blood Count 11.5 10^3/uL (3.5-10.8)
[2022-06-21 07:57] LABS: Albumin 3.2 g/dL (3.2-5.2); Albumin/Globulin Ratio 1.4 (1-3); Calcium 8.4 mg/dL (8.6-10.3); Creatinine, Serum 0.94 mg/dL (0.67-1.17); Globulin 2.3 g/dL (2-4); Magnesium 1.9 mg/dL (1.9-2.7); Total Bilirubin 0.5 mg/dL (0.2-1.0); Total Protein 5.5 g/dL (6.4-8.9); eGFR CKD-EPI 92.8 (>60)
[2022-06-21] MEDS: Enoxaparin 40 MG/0.4 ML SYR SUBCUT SCH (11:18)
[2022-06-21] MEDS: Insulin GLARGINE 100 un/ml 10 ml VIAL SUBCUT SCH (11:18)
[2022-06-21] MEDS: Pantoprazole VIAL 40 MG VIAL IV SCH (17:46)
[2022-06-22] MEDS: Insulin GLARGINE 100 un/ml 10 ml VIAL SUBCUT SCH (08:28)
[2022-06-22] MEDS ORDERED: Insulin GLARGINE 100 un/ml 10 ml VIAL SUBCUT ONE (09:04)
[2022-06-22] MEDS: Enoxaparin 40 MG/0.4 ML SYR SUBCUT SCH (09:47)
[2022-06-22] MEDS: Pantoprazole VIAL 40 MG VIAL IV SCH (14:52)
[2022-06-23 08:00] LABS: Glucose Confirmatory 420 mg/dL (70-100)
[2022-06-23] MEDS ORDERED: Dextrose 50% Syringe 50 ml 25 GM/50 ML SYRINGE IV PUSH PRN (08:34)
[2022-06-23] MEDS ORDERED: Midazolam 10 mg/10 ml VIAL 1 mg/ml 10 ml VIAL (10 mg) IV SLOW PU ONE (08:47)
[2022-06-23] MEDS ORDERED: Flumazenil 0.5 mg/5 ml 0.1 MG/ML 5 ml VIAL IV PRN (08:47)
[2022-06-23] MEDS ORDERED: Ondansetron 4 mg VIAL 2 MG/ML 2 ml VIAL IV ONE (08:47)
[2022-06-23] MEDS ORDERED: fentaNYL 100 mcg/2 ml 50 MCG/ML VIAL IV SLOW PU ONE (08:47)
[2022-06-23] MEDS ORDERED: Naloxone 0.4 mg VIAL 0.4 mg/ml 1 ml VIAL IV PUSH PRN (08:47)
[2022-06-23] MEDS ORDERED: Lactated Ringers 1000 ml BAG 1,000 ML IV ONE (08:47)
[2022-06-23] MEDS ORDERED: Lidocaine 2% JELLY 6 ML Topical TOPICAL ONE (08:47)
[2022-06-23] MEDS ORDERED: Insulin GLARGINE 100 un/ml 10 ml VIAL SUBCUT SCH (09:00)
[2022-06-23] MEDS: Enoxaparin 40 MG/0.4 ML SYR SUBCUT SCH (09:03)
[2022-06-23] MEDS ORDERED: Labetalol IV 5 MG/ML 20 ml VIAL IV PUSH ONE (10:55)
[2022-06-23] MEDS ORDERED: fentaNYL 100 mcg/2 ml 50 MCG/ML VIAL ONE (11:13)
[2022-06-23] MEDS ORDERED: Midazolam 10 mg/10 ml VIAL 1 mg/ml 10 ml VIAL (10 mg) ONE (11:13)
[2022-06-23] MEDS: Pantoprazole VIAL 40 MG VIAL IV SCH (14:33)
[2022-06-23 15:32] VITALS: BP 149/76
== END 2022-06-23 16:27 | disposition home or self-care (01) | DRG 420 ==
LOC: ED 17:27 → EDHOLD 20:27 → ICU 21:58 → MEDTELE 06-20 20:08
PROVIDERS: ADMIT Surgery Surgical Critical Care; ATTEND Surgery Surgical Critical Care

== ENCOUNTER 2023-05-22 12:47 | Inpatient (IN) ==
[2023-05-22] MEDS: Lactated Ringers 1000 ml BAG 1,000 ML IV ONE ×2 (13:33→15:22)
[2023-05-22 15:17] LABS: ABS Basophils 0.1 10^3/uL (0.0-0.1); ABS Lymphocytes 0.9 10^3/uL (1.0-4.8); ABS Monocytes 0.9 10^3/uL (0.0-1.1); ABS Nucleated RBC 0.01 10^3/ul; Eosinophil % 0.1 %; Hematocrit 44.8 % (38-53); Hemoglobin 13.6 g/dL (13.2-16.3); Lymphocyte % 4.1 %; Mean Corpuscular Hemoglobin 29.4 pg (27-33); Mean Corpuscular Hgb Conc 30.5 g/dL (31-36); Mean Corpuscular Volume 96.4 fL (80-97); Mean Platelet Volume 10.5 fL (7.5-11.2); Platelet Count 225 10^3/uL (150-450); Red Blood Count 4.64 10^6/uL (4.06-5.63); Red Cell Distribution Width 15.1 % (12-17); White Blood Count 20.9 10^3/uL (3.6-10.2)
[2023-05-22 15:50] LABS: Urine Appearance Clear; Urine Bacteria Absent /HPF (Absent); Urine Bilirubin Negative (Negative); Urine Blood 1+ (Negative); Urine Color Light-Yellow; Urine Glucose 4+ (>=1000 mg/dL) (Negative); Urine Ketones 1+ (Negative); Urine Nitrite Negative (Negative); Urine Protein Trace (Negative); Urine Red Blood Cell 1+(3-5/hpf) /HPF (0-Trace); Urine Urobilinogen Negative (Negative); Urine White Blood Cell Trace(0-5/hpf) /HPF (0-Trace)
[2023-05-22 15:55] LABS: ALT 43 U/L (7-52); AST 104 U/L (13-39); Albumin 3.7 g/dL (3.2-5.2); Albumin/Globulin Ratio 1.3 (1-3); Alkaline Phosphatase 85 U/L (35-149); Anion Gap 32 mmol/L (2-16); Blood Urea Nitrogen 56 mg/dL (6-24); CO2 Carbon Dioxide 9 mmol/L (22-32); Calcium 8.6 mg/dL (8.6-10.3); Chloride 76 mmol/L (101-111); Creatinine, Serum 2.78 mg/dL (0.67-1.17); Globulin 2.8 g/dL (2-4); Magnesium 2.4 mg/dL (1.9-2.7); Potassium 5.8 mmol/L (3.5-5.0); Sodium 117 mmol/L (135-145); Total Bilirubin 1.1 mg/dL (0.2-1.0); Total Protein 6.5 g/dL (6.4-8.9); eGFR CKD-EPI 25.1 (>60)
[2023-05-22] MEDS: Insulin Infusion 100unit/100mL 100 UNIT/100 ML BAG IV SCH (16:02)
[2023-05-22 16:11] LABS: Alcohol, S < 13 mg/dL (<13)
[2023-05-22] MEDS: NORMOSOL-R pH 7.4 1000 mL BAG 1,000 ML IV SCH ×2 (16:17→20:45)
[2023-05-22 16:22] LABS: Glucose 1211 mg/dL (70-100)
[2023-05-22 17:54] LABS: Calcium 8.2 mg/dL (8.6-10.3); Creatinine, Serum 2.67 mg/dL (0.67-1.17); Phosphorus 7.2 mg/dL (2.5-5.0); Potassium 5.1 mmol/L (3.5-5.0); eGFR CKD-EPI 26.4 (>60)
[2023-05-22] MEDS: Insulin GLARGINE 100 un/ml 10 ml VIAL SUBCUT ONE (18:23)
[2023-05-22] MEDS: Enoxaparin 30 MG/0.3 ML SYR SUBCUT SCH (18:23)
[2023-05-22 20:06] LABS: Calcium 8.4 mg/dL (8.6-10.3); Creatinine, Serum 2.5 mg/dL (0.67-1.17); Phosphorus 5.4 mg/dL (2.5-5.0); Potassium 4.3 mmol/L (3.5-5.0); eGFR CKD-EPI 28.5 (>60)
[2023-05-22] MEDS: HYDROcodone/ACETAMIN 5/325 mg TAB PO SCH (20:45)
[2023-05-22 21:21] LABS: High Sensitivity Troponin 1 Hr > 24000 pg/mL (<20)
[2023-05-22 22:39] LABS: Glucose Confirmatory 453 mg/dL (70-100)
[2023-05-22] MEDS: Heparin DRIP 25,000 UNITS BAG 25,000 UNITS/250 ML BAG IV SCH (22:40)
[2023-05-22] MEDS: Potassium Chloride LIQUID 20 MEQ/15 ML LIQUID PO ONE (22:48)
[2023-05-22] MEDS: Heparin DRIP 25,000 UNITS BAG 25,000 UNITS/250 ML BAG IV ONE (22:48)
[2023-05-22] MEDS: Heparin 5000 UNITS/ML 1 mL VIAL IV SCH (22:52)
[2023-05-23 01:11] LABS: Anion Gap 13 mmol/L (2-16); Blood Urea Nitrogen 47 mg/dL (6-24); CO2 Carbon Dioxide 23 mmol/L (22-32); Calcium 7.4 mg/dL (8.6-10.3); Chloride 91 mmol/L (101-111); Creatinine, Serum 1.73 mg/dL (0.67-1.17); Glucose 260 mg/dL (70-100); Phosphorus 2.8 mg/dL (2.5-5.0); Potassium 4.3 mmol/L (3.5-5.0); Sodium 127 mmol/L (135-145); eGFR CKD-EPI 44.4 (>60)
[2023-05-23] MEDS: cefTRIAXone 1 gm/50 mL D5W 1 GM/50 ML BAG IV SCH (01:13)
[2023-05-23 01:21] LABS: High Sensitivity Troponin 3 Hr > 24000 pg/mL (<20)
[2023-05-23] MEDS: Azithromycin 500 mg/250 ml NS 500 MG/250 ML BAG IVPB SCH (01:48)
[2023-05-23] MEDS: D5LR 1000 ml BAG 1,000 ML IV SCH (02:03)
[2023-05-23 04:35] LABS: ABS Basophils 0.1 10^3/uL (0.0-0.1); ABS Lymphocytes 1.6 10^3/uL (1.0-4.8); ABS Neutrophils 17.9 10^3/uL (1.5-7.6); ABS Nucleated RBC 0.01 10^3/ul; Eosinophil % 0.2 %; Hematocrit 36.6 % (38-53); Hemoglobin 12.6 g/dL (13.2-16.3); Lymphocyte % 7.9 %; Mean Corpuscular Hemoglobin 28.8 pg (27-33); Mean Corpuscular Hgb Conc 34.5 g/dL (31-36); Mean Corpuscular Volume 83.5 fL (80-97); Mean Platelet Volume 9.3 fL (7.5-11.2); Platelet Count 194 10^3/uL (150-450); Red Blood Count 4.38 10^6/uL (4.06-5.63); Red Cell Distribution Width 13.9 % (12-17); White Blood Count 20.6 10^3/uL (3.6-10.2)
[2023-05-23 04:51] LABS: Creatinine, Serum 1.78 mg/dL (0.67-1.17); Magnesium 2.2 mg/dL (1.9-2.7); Phosphorus 3.5 mg/dL (2.5-5.0); eGFR CKD-EPI 42.9 (>60)
[2023-05-23 05:20] LABS: HDL Cholesterol 61.9 mg/dL
[2023-05-23] MEDS: NORMOSOL-R pH 7.4 1000 mL BAG 1,000 ML IV SCH (06:27)
[2023-05-23] MEDS ORDERED: Sulfur Hexaflouride MICROSPHR 25 MG VIAL ONE (08:14)
[2023-05-23] MEDS: Ondansetron 4 mg VIAL 2 MG/ML 2 ml VIAL IV PRN (08:26)
[2023-05-23] MEDS ORDERED: Dextrose 50% Syringe 50 ml 25 GM/50 ML SYRINGE IV PUSH PRN (09:17)
[2023-05-23] MEDS: Ondansetron 4 mg VIAL 2 MG/ML 2 ml VIAL ONE (10:02)
[2023-05-23] MEDS: Sodium Chloride CONC. 4 MEQ/ML 77 MEQ in D10W 1000 ml BAG 1,000 ML IV SCH (10:04)
[2023-05-23] MEDS: DULoxetine DR 30 mg CAP PO SCH (10:24)
[2023-05-23] MEDS: Vitamin THERAPEUTIC TAB PO SCH (10:24)
[2023-05-23] MEDS: Insulin GLARGINE 100 un/ml 10 ml VIAL SUBCUT ONE (16:27)
[2023-05-23 18:08] LABS: Calcium 7.8 mg/dL (8.6-10.3); Creatinine, Serum 1.4 mg/dL (0.67-1.17); Potassium 4.3 mmol/L (3.5-5.0); eGFR CKD-EPI 57.2 (>60)
[2023-05-23] MEDS: Nicotine Lozenge mini 2 MG LOZNG.MINI MT PRN (18:34)
[2023-05-23 21:06] LABS: Osmolality Serum 284 mOsm/kg (275-295); Urine Osmo 736 mOsm/kg (150-1150)
[2023-05-24 03:59] LABS: Calcium 8.3 mg/dL (8.6-10.3); Creatinine, Serum 1.41 mg/dL (0.67-1.17); Magnesium 2.3 mg/dL (1.9-2.7); Potassium 4.1 mmol/L (3.5-5.0); eGFR CKD-EPI 56.7 (>60)
[2023-05-24 04:06] LABS: ABS Lymphocytes 1.4 10^3/uL (1.0-4.8); ABS Monocytes 0.9 10^3/uL (0.0-1.1); ABS Neutrophils 19.8 10^3/uL (1.5-7.6); ABS Nucleated RBC 0.01 10^3/ul; Hematocrit 38.8 % (38-53); Hemoglobin 13.2 g/dL (13.2-16.3); Lymphocyte % 6.5 %; Mean Corpuscular Hemoglobin 29.2 pg (27-33); Mean Corpuscular Hgb Conc 34.2 g/dL (31-36); Mean Corpuscular Volume 85.3 fL (80-97); Mean Platelet Volume 9.9 fL (7.5-11.2); Platelet Count 191 10^3/uL (150-450); Red Blood Count 4.54 10^6/uL (4.06-5.63); Red Cell Distribution Width 14.2 % (12-17); White Blood Count 22.1 10^3/uL (3.6-10.2)
[2023-05-24] MEDS ORDERED: Lorazepam PYXIS KEY PRN (05:23)
[2023-05-24] MEDS: LORazepam 2 mg VIAL 1 ml IV PUSH ONE (05:44)
[2023-05-24] MEDS: Furosemide 40 mg/4 ml IV VIAL IV SLOW PU ONE ×2 (05:48→11:15)
[2023-05-24] MEDS: nitroGLYCERIN DRIP 25,000 MCG/250 ML BTL IV SCH ×4 (06:01→19:19)
[2023-05-24] MEDS: Insulin GLARGINE 100 un/ml 10 ml VIAL SUBCUT SCH (11:15)
[2023-05-24] MEDS ORDERED: Magnesium Hydroxide LIQ 30 ML UDC PO PRN (15:06)
[2023-05-24] MEDS ORDERED: Polyethylene Glycol 3350 17 GM PACKET PO PRN (15:06)
[2023-05-24] MEDS ORDERED: Senna TAB 8.6 mg TAB PO PRN (15:06)
[2023-05-24 17:35] LABS: Calcium 7.8 mg/dL (8.6-10.3); Creatinine, Serum 1.21 mg/dL (0.67-1.17); Potassium 3.3 mmol/L (3.5-5.0); eGFR CKD-EPI 68.1 (>60)
[2023-05-24] MEDS: Potassium Chloride LIQUID 20 MEQ/15 ML LIQUID PO ONE (19:26)
[2023-05-24] MEDS: Potassium EFFERVES 25 meq TAB PO ONE (19:43)
[2023-05-25] MEDS: Magnesium Sulfate IV 1GM/100ML 1 GM/100 ML BAG IV ONE (00:19)
[2023-05-25 04:03] LABS: ABS Basophils 0.1 10^3/uL (0.0-0.1); ABS Lymphocytes 1.1 10^3/uL (1.0-4.8); ABS Monocytes 0.6 10^3/uL (0.0-1.1); ABS Neutrophils 10.5 10^3/uL (1.5-7.6); ABS Nucleated RBC 0.01 10^3/ul; Hematocrit 32.3 % (38-53); Hemoglobin 11.3 g/dL (13.2-16.3); Lymphocyte % 9.1 %; Mean Corpuscular Hemoglobin 29.6 pg (27-33); Mean Corpuscular Hgb Conc 35.1 g/dL (31-36); Mean Corpuscular Volume 84.3 fL (80-97); Mean Platelet Volume 9.5 fL (7.5-11.2); Platelet Count 146 10^3/uL (150-450); Red Blood Count 3.83 10^6/uL (4.06-5.63); Red Cell Distribution Width 13.5 % (12-17); White Blood Count 12.3 10^3/uL (3.6-10.2)
[2023-05-25 04:19] LABS: Calcium 7.6 mg/dL (8.6-10.3); Creatinine, Serum 0.98 mg/dL (0.67-1.17); Potassium 3.5 mmol/L (3.5-5.0); eGFR CKD-EPI 87.7 (>60)
[2023-05-25] MEDS: Potassium Chlor 20 meq TAB.ER PO SCH (08:40)
[2023-05-25] MEDS: Furosemide 40 mg/4 ml IV VIAL IV ONE (11:12)
[2023-05-25] MEDS ORDERED: Midazolam 10 mg/10 ml VIAL 1 mg/ml 10 ml VIAL (10 mg) IV SLOW PU ONE (12:48)
[2023-05-25] MEDS ORDERED: fentaNYL 100 mcg/2 ml 50 MCG/ML VIAL IV SLOW PU ONE (12:48)
[2023-05-25 15:10] LABS: Calcium 7.3 mg/dL (8.6-10.3); Creatinine, Serum 1.24 mg/dL (0.67-1.17); Potassium 3.9 mmol/L (3.5-5.0); eGFR CKD-EPI 66.1 (>60)
[2023-05-26 10:22] LABS: Hematocrit 37.4 % (38-53); Hemoglobin 12.9 g/dL (13.2-16.3); Mean Corpuscular Hemoglobin 29.3 pg (27-33); Mean Corpuscular Hgb Conc 34.6 g/dL (31-36); Mean Corpuscular Volume 84.8 fL (80-97); Mean Platelet Volume 9.9 fL (7.5-11.2); Platelet Count 201 10^3/uL (150-450); Red Blood Count 4.41 10^6/uL (4.06-5.63); Red Cell Distribution Width 13.5 % (12-17); White Blood Count 10.2 10^3/uL (3.6-10.2)
[2023-05-26 10:46] LABS: Calcium 7.9 mg/dL (8.6-10.3); Creatinine, Serum 1.09 mg/dL (0.67-1.17); Magnesium 2.1 mg/dL (1.9-2.7); eGFR CKD-EPI 77.2 (>60)
[2023-05-26] MEDS: Insulin GLARGINE 100 un/ml 10 ml VIAL SUBCUT ONE (11:27)
[2023-05-26] MEDS: Insulin GLARGINE 100 un/ml 10 ml VIAL SUBCUT SCH (11:37)
[2023-05-26] MEDS ORDERED: Lidocaine 1% MPF 5 ML VIAL ONE (14:15)
[2023-05-26] MEDS ORDERED: Heparin 1,000 UNIT/ML 10 ml (10,000 UNITS) CATHLAB/DIALYSIS ONE (14:15)
[2023-05-26] MEDS ORDERED: nitroGLYCERIN DRIP 25,000 MCG/250 ML BTL ONE (14:15)
[2023-05-26] MEDS ORDERED: Heparin 2 UNITS/ML 1000 mls 3,000 ML IV ONE (14:15)
[2023-05-26] MEDS ORDERED: Iohexol 350 (CONTRAST) 200 ML MDV IV ONE (14:15)
[2023-05-26] MEDS ORDERED: niCARdipine 0.1MG/ML IVPREMIX 20 MG/200 ML BAG IV ONE (14:16)
[2023-05-26] MEDS ORDERED: fentaNYL 100 mcg/2 ml 50 MCG/ML VIAL ONE (14:21)
[2023-05-26] MEDS ORDERED: Midazolam 5 mg/5 ml VIAL 1 mg/ml 5 ml VIAL (5 mg) ONE (14:21)
[2023-05-26] MEDS ORDERED: Eptifibatide IV (Load dose) 2 MG/ML 10 ml VIAL ONE ×2 (15:01→15:20)
[2023-05-26] MEDS: fentaNYL 100 mcg/2 ml 50 MCG/ML VIAL IV SLOW PU ONE (15:05)
[2023-05-26] MEDS: Midazolam 10 mg/10 ml VIAL 1 mg/ml 10 ml VIAL (10 mg) IV SLOW PU ONE (15:06)
[2023-05-26] MEDS: oxyCODONE/Acetamin 5/325 mg TAB PO PRN (20:34)
[2023-05-26] MEDS: cefTRIAXone 1 GM Q24H (ADVAN) IVPB SCH (22:47)
[2023-05-26] MEDS: Dextrose 50% Syringe 50 ml 25 GM/50 ML SYRINGE IV PUSH PRN (23:51)
[2023-05-27 04:55] LABS: ABS Eosinophils 0.1 10^3/uL (0.0-0.5); ABS Lymphocytes 1.2 10^3/uL (1.0-4.8); ABS Monocytes 0.6 10^3/uL (0.0-1.1); ABS Neutrophils 9.8 10^3/uL (1.5-7.6); ABS Nucleated RBC 0.03 10^3/ul; Eosinophil % 0.7 %; Hematocrit 46.7 % (38-53); Hemoglobin 15.7 g/dL (13.2-16.3); Lymphocyte % 10.5 %; Mean Corpuscular Hemoglobin 28.9 pg (27-33); Mean Corpuscular Hgb Conc 33.6 g/dL (31-36); Mean Corpuscular Volume 85.9 fL (80-97); Mean Platelet Volume 9.8 fL (7.5-11.2); Nucleated Red Blood Cells % 0.2 %/100WBC (0.0-0.8); Platelet Count 269 10^3/uL (150-450); Red Blood Count 5.44 10^6/uL (4.06-5.63); White Blood Count 11.8 10^3/uL (3.6-10.2)
[2023-05-27 05:11] LABS: Calcium 8.7 mg/dL (8.6-10.3); Creatinine, Serum 1.07 mg/dL (0.67-1.17); Magnesium 2.3 mg/dL (1.9-2.7); Potassium 3.6 mmol/L (3.5-5.0)
[2023-05-27] MEDS: Potassium Chloride LIQUID 20 MEQ/15 ML LIQUID PO ONE (06:09)
[2023-05-27] MEDS ORDERED: Insulin GLARGINE 100 un/ml 10 ml VIAL SUBCUT SCH (09:00)
[2023-05-27] MEDS: Insulin GLARGINE 100 un/ml 10 ml VIAL SUBCUT SCH (09:45)
[2023-05-27] MEDS: oxyCODONE/Acetamin 5/325 mg TAB PO PRN (20:28)
[2023-05-28 06:56] LABS: ABS Eosinophils 0.3 10^3/uL (0.0-0.5); ABS Lymphocytes 1.8 10^3/uL (1.0-4.8); ABS Monocytes 0.9 10^3/uL (0.0-1.1); ABS Neutrophils 8.6 10^3/uL (1.5-7.6); ABS Nucleated RBC 0.01 10^3/ul; Eosinophil % 2.4 %; Hematocrit 39.1 % (38-53); Hemoglobin 13.3 g/dL (13.2-16.3); Lymphocyte % 15.7 %; Mean Corpuscular Hemoglobin 28.7 pg (27-33); Mean Corpuscular Hgb Conc 33.9 g/dL (31-36); Mean Corpuscular Volume 84.6 fL (80-97); Mean Platelet Volume 9.3 fL (7.5-11.2); Nucleated Red Blood Cells % 0.1 %/100WBC (0.0-0.8); Platelet Count 274 10^3/uL (150-450); Red Blood Count 4.63 10^6/uL (4.06-5.63); White Blood Count 11.7 10^3/uL (3.6-10.2)
[2023-05-28 07:14] LABS: Calcium 8.1 mg/dL (8.6-10.3); Creatinine, Serum 1.18 mg/dL (0.67-1.17); Potassium 3.9 mmol/L (3.5-5.0); eGFR CKD-EPI 70.2 (>60)
[2023-05-28] MEDS: Insulin GLARGINE 100 un/ml 10 ml VIAL SUBCUT SCH (08:18)
[2023-05-28] MEDS: Metoprolol Succinate XL 200 mg TAB PO SCH (08:19)
[2023-05-29 06:47] LABS: ABS Eosinophils 0.4 10^3/uL (0.0-0.5); ABS Lymphocytes 2.2 10^3/uL (1.0-4.8); ABS Monocytes 0.9 10^3/uL (0.0-1.1); ABS Neutrophils 8.7 10^3/uL (1.5-7.6); Eosinophil % 3.1 %; Hematocrit 40.5 % (38-53); Hemoglobin 13.6 g/dL (13.2-16.3); Lymphocyte % 17.7 %; Mean Corpuscular Hemoglobin 28.7 pg (27-33); Mean Corpuscular Hgb Conc 33.7 g/dL (31-36); Mean Corpuscular Volume 85.1 fL (80-97); Mean Platelet Volume 9.3 fL (7.5-11.2); Platelet Count 315 10^3/uL (150-450); Red Blood Count 4.75 10^6/uL (4.06-5.63); Red Cell Distribution Width 13.9 % (12-17); White Blood Count 12.2 10^3/uL (3.6-10.2)
[2023-05-29 07:07] LABS: Calcium 8.2 mg/dL (8.6-10.3); Creatinine, Serum 1.14 mg/dL (0.67-1.17); Magnesium 1.8 mg/dL (1.9-2.7); eGFR CKD-EPI 73.2 (>60)
[2023-05-29] MEDS: Magnesium Sulfate IV 1GM/100ML 1 GM/100 ML BAG IV ONE (08:25)
[2023-05-29] MEDS ORDERED: Nitroglycerin 0.3 mg/hr PATCH (7.5 mg) TRANSDERM PRN (09:48)
[2023-05-29] MEDS: Furosemide 40 mg/4 ml IV VIAL IV ONE (10:25)
[2023-05-29] MEDS: Heparin 5000 UNITS/ML 1 mL VIAL SUBCUT SCH (10:25)
[2023-05-30 08:18] LABS: ABS Basophils 0.1 10^3/uL (0.0-0.1); ABS Eosinophils 0.4 10^3/uL (0.0-0.5); ABS Lymphocytes 2.1 10^3/uL (1.0-4.8); ABS Monocytes 0.7 10^3/uL (0.0-1.1); ABS Nucleated RBC 0.01 10^3/ul; Eosinophil % 3.4 %; Hematocrit 39.4 % (38-53); Hemoglobin 13.3 g/dL (13.2-16.3); Lymphocyte % 18.9 %; Mean Corpuscular Hemoglobin 28.8 pg (27-33); Mean Corpuscular Hgb Conc 33.6 g/dL (31-36); Mean Corpuscular Volume 85.8 fL (80-97); Nucleated Red Blood Cells % 0.1 %/100WBC (0.0-0.8); Platelet Count 309 10^3/uL (150-450); Red Cell Distribution Width 13.9 % (12-17); White Blood Count 11.3 10^3/uL (3.6-10.2)
[2023-05-30 08:40] LABS: Calcium 8.1 mg/dL (8.6-10.3); Creatinine, Serum 1.27 mg/dL (0.67-1.17); Magnesium 1.9 mg/dL (1.9-2.7); Potassium 4.6 mmol/L (3.5-5.0); eGFR CKD-EPI 64.3 (>60)
[2023-05-30 10:08] VITALS: BP 130/82
== END 2023-05-30 15:07 | disposition home or self-care (01) | DRG 981 ==
LOC: ED 12:47 → EDHOLD 16:40 → ICU 18:12 → MED 05-28 06:27
PROVIDERS: ADMIT Student in an Organized Health Care Education/Training Program; ATTEND Hospitalist

== ENCOUNTER 2023-08-18 17:27 | Inpatient (IN) ==
[2023-08-18 18:10] LABS: PCO2 Arterial 22 mmHg (35-45); PO2 Arterial 92 mmHg (80-100)
[2023-08-18 18:13] LABS: ABS Monocytes 0.3 10^3/uL (0.0-1.1); ABS Nucleated RBC 0.02 10^3/ul; Eosinophil % 0.3 %; Hematocrit 50.8 % (38-53); Hemoglobin 17.2 g/dL (13.2-16.3); Lymphocyte % 10.5 %; Mean Corpuscular Hemoglobin 29.6 pg (27-33); Mean Corpuscular Hgb Conc 33.8 g/dL (31-36); Mean Corpuscular Volume 87.4 fL (80-97); Mean Platelet Volume 9.8 fL (7.5-11.2); Nucleated Red Blood Cells % 0.2 %/100WBC (0.0-0.8); Platelet Count 210 10^3/uL (150-450); Red Blood Count 5.81 10^6/uL (4.06-5.63); Red Cell Distribution Width 15.6 % (12-17); White Blood Count 9.3 10^3/uL (3.6-10.2)
[2023-08-18 18:24] LABS: INR 0.94 (0.83-1.13)
[2023-08-18] MEDS: Lactated Ringers 1000 ml BAG 1,000 ML IV SCH ×2 (18:33→20:22)
[2023-08-18 18:37] LABS: High Sens Troponin Baseline 24 pg/mL (<20)
[2023-08-18 18:57] LABS: ALT 11 U/L (7-52); AST 16 U/L (13-39); Albumin 3.8 g/dL (3.2-5.2); Albumin/Globulin Ratio 1.3 (1-3); Alkaline Phosphatase 101 U/L (35-149); Anion Gap 16 mmol/L (2-16); Blood Urea Nitrogen 32 mg/dL (6-24); C Reactive Protein 97.77 mg/L (<8.01); CO2 Carbon Dioxide 20 mmol/L (22-32); Calcium 9.2 mg/dL (8.6-10.3); Chloride 88 mmol/L (101-111); Creatinine, Serum 1.39 mg/dL (0.67-1.17); Globulin 2.9 g/dL (2-4); Glucose 501 mg/dL (70-100); Lipase < 10 U/L (11.0-82.0); Magnesium 1.9 mg/dL (1.9-2.7); Phosphorus 4.4 mg/dL (2.5-5.0); Potassium 5.5 mmol/L (3.5-5.0); Sodium 124 mmol/L (135-145); Total Bilirubin 0.6 mg/dL (0.2-1.0); Total Protein 6.7 g/dL (6.4-8.9); eGFR CKD-EPI 57.7 (>60)
[2023-08-18 19:03] LABS: Urine Appearance Clear; Urine Bilirubin Negative (Negative); Urine Blood Negative (Negative); Urine Color Light-Yellow; Urine Glucose 4+ (>=1000 mg/dL) (Negative); Urine Ketones 2+ (Negative); Urine Nitrite Negative (Negative); Urine Protein Trace (Negative); Urine Urobilinogen Negative (Negative)
[2023-08-18 19:57] LABS: High Sensitivity Troponin 1 Hr 23 pg/mL (<20)
[2023-08-18] MEDS: Pantoprazole VIAL 40 MG VIAL IV ONE (20:13)
[2023-08-18] MEDS: Ondansetron 4 mg VIAL 2 MG/ML 2 ml VIAL IV ONE (20:13)
[2023-08-18] MEDS: Iodixanol (CONTRAST) 320 MG/ML 100 ML SDV IV ONE (20:48)
[2023-08-18 22:17] LABS: Glucose Confirmatory 414 mg/dL (70-100)
[2023-08-18 23:03] LABS: Anion Gap 20 mmol/L (2-16); Blood Urea Nitrogen 29 mg/dL (6-24); CO2 Carbon Dioxide 17 mmol/L (22-32); Calcium 8.2 mg/dL (8.6-10.3); Chloride 91 mmol/L (101-111); Creatinine, Serum 1.18 mg/dL (0.67-1.17); Glucose 402 mg/dL (70-100); Magnesium 1.7 mg/dL (1.9-2.7); Sodium 128 mmol/L (135-145); eGFR CKD-EPI 70.2 (>60)
[2023-08-19] MEDS: Magnesium Sulfate 2 gm BAG 2 GM/50 ML BAG IVPB ONE (00:32)
[2023-08-19] MEDS: Lactated Ringers 1000 ml BAG 1,000 ML IV ONE ×2 (00:38→02:31)
[2023-08-19 01:16] LABS: Calcium 8.3 mg/dL (8.6-10.3); Creatinine, Serum 1.08 mg/dL (0.67-1.17); Potassium 4.5 mmol/L (3.5-5.0); eGFR CKD-EPI 78.1 (>60)
[2023-08-19] MEDS ORDERED: Dextrose 50% Syringe 50 ml 25 GM/50 ML SYRINGE IV PUSH PRN ×2 (01:21→01:31)
[2023-08-19] MEDS: Enoxaparin 40 MG/0.4 ML SYR SUBCUT SCH (01:33)
[2023-08-19] MEDS ORDERED: Insulin Infusion 100unit/100mL 100 UNIT/100 ML BAG IV SCH (02:00)
[2023-08-19 02:39] LABS: Venous Bicarbonate HCO3 24.7 mmol/L (24-28)
[2023-08-19] MEDS ORDERED: Lactated Ringers 1000 ml BAG 1,000 ML IV SCH (03:00)
[2023-08-19] MEDS: Ondansetron 4 mg VIAL 2 MG/ML 2 ml VIAL IV PRN (03:11)
[2023-08-19 06:04] LABS: ABS Eosinophils 0.2 10^3/uL (0.0-0.5); ABS Lymphocytes 2.1 10^3/uL (1.0-4.8); ABS Monocytes 0.6 10^3/uL (0.0-1.1); ABS Neutrophils 7.6 10^3/uL (1.5-7.6); ABS Nucleated RBC 0.01 10^3/ul; Eosinophil % 1.9 %; Hematocrit 42.1 % (38-53); Hemoglobin 14.5 g/dL (13.2-16.3); Lymphocyte % 19.8 %; Mean Corpuscular Hemoglobin 29.6 pg (27-33); Mean Corpuscular Hgb Conc 34.5 g/dL (31-36); Mean Corpuscular Volume 85.8 fL (80-97); Mean Platelet Volume 9.3 fL (7.5-11.2); Nucleated Red Blood Cells % 0.1 %/100WBC (0.0-0.8); Platelet Count 217 10^3/uL (150-450); Red Blood Count 4.91 10^6/uL (4.06-5.63); Red Cell Distribution Width 15.6 % (12-17); White Blood Count 10.5 10^3/uL (3.6-10.2)
[2023-08-19 06:39] LABS: Albumin/Globulin Ratio 1.4 (1-3); Calcium 8.3 mg/dL (8.6-10.3); Creatinine, Serum 0.99 mg/dL (0.67-1.17); Globulin 2.1 g/dL (2-4); Potassium 4.1 mmol/L (3.5-5.0); Total Bilirubin 0.4 mg/dL (0.2-1.0); Total Protein 5.1 g/dL (6.4-8.9); eGFR CKD-EPI 86.7 (>60)
[2023-08-19] MEDS: DULoxetine DR 30 mg CAP PO SCH (08:40)
[2023-08-19] MEDS: Insulin GLARGINE 100 un/ml 10 ml VIAL SUBCUT SCH (08:41)
[2023-08-19] MEDS ORDERED: Insulin GLARGINE 100 un/ml 10 ml VIAL SUBCUT SCH (09:00)
[2023-08-19] MEDS: Morphine 2 MG/ML SYRINGE IV PRN ×2 (15:01→19:30)
[2023-08-19] MEDS: HYDROcodone/ACETAMIN 5/325 mg TAB PO SCH (21:50)
[2023-08-20 06:21] LABS: ABS Eosinophils 0.3 10^3/uL (0.0-0.5); ABS Lymphocytes 1.4 10^3/uL (1.0-4.8); ABS Monocytes 0.2 10^3/uL (0.0-1.1); ABS Nucleated RBC 0.01 10^3/ul; Eosinophil % 5.3 %; Hematocrit 40.9 % (38-53); Hemoglobin 13.9 g/dL (13.2-16.3); Lymphocyte % 28.4 %; Mean Corpuscular Hemoglobin 29.8 pg (27-33); Mean Corpuscular Hgb Conc 34.1 g/dL (31-36); Mean Corpuscular Volume 87.3 fL (80-97); Mean Platelet Volume 9.2 fL (7.5-11.2); Nucleated Red Blood Cells % 0.1 %/100WBC (0.0-0.8); Platelet Count 175 10^3/uL (150-450); Red Blood Count 4.68 10^6/uL (4.06-5.63); Red Cell Distribution Width 15.3 % (12-17); White Blood Count 4.9 10^3/uL (3.6-10.2)
[2023-08-20 06:39] LABS: Calcium 7.9 mg/dL (8.6-10.3); Creatinine, Serum 1.12 mg/dL (0.67-1.17); Magnesium 1.8 mg/dL (1.9-2.7); Potassium 4.4 mmol/L (3.5-5.0); eGFR CKD-EPI 74.7 (>60)
[2023-08-20] MEDS: Magnesium Sulfate 2 gm BAG 2 GM/50 ML BAG IVPB ONE (09:13)
[2023-08-20 09:29] VITALS: BP 169/99
== END 2023-08-20 12:05 | disposition home or self-care (01) | DRG 392 ==
LOC: ED 17:27 → EDHOLD 22:57 → SUATTDRO 22:57 → MEDTELE 23:14 → MED 08-19 12:53
PROVIDERS: ADMIT Student in an Organized Health Care Education/Training Program; ATTEND Internal Medicine

== ENCOUNTER 2024-05-01 11:24 | Observation (INO) ==
[2024-05-01] MEDS: NS 0.9% 1000 ml BAG 2,000 ML IV ONE (12:11)
[2024-05-01] MEDS: Morphine 10 MG/ML VIAL (1 ml) IV ONE ×2 (12:11→13:44)
[2024-05-01] MEDS: Ondansetron 4 mg VIAL 2 MG/ML 2 ml VIAL IV ONE (12:11)
[2024-05-01 12:30] LABS: Hematocrit 44.1 % (38-53); Hemoglobin 15.4 g/dL (13.2-16.3); Mean Corpuscular Hemoglobin 31.6 pg (27-33); Mean Corpuscular Hgb Conc 35.1 g/dL (31-36); Mean Corpuscular Volume 90.1 fL (80-97); Red Blood Count 4.89 10^6/uL (4.06-5.63); Red Cell Distribution Width 14.2 % (12-17); White Blood Count 10.5 10^3/uL (3.6-10.2)
[2024-05-01 12:51] LABS: ABS Monocytes 0.6 10^3/uL (0.0-1.1); ABS Neutrophils 8.9 10^3/uL (1.5-7.6); ABS Nucleated RBC 0.01 10^3/ul; Eosinophil % 0.2 %; Lymphocyte % 9.5 %; Mean Platelet Volume 9.2 fL (7.5-11.2); Nucleated Red Blood Cells % 0.1 %/100WBC (0.0-0.8); Platelet Count 215 10^3/uL (150-450)
[2024-05-01 12:54] LABS: High Sens Troponin Baseline 29 pg/mL (<20)
[2024-05-01 13:22] LABS: ALT 40 U/L (7-52); AST 36 U/L (13-39); Albumin 3.8 g/dL (3.5-5.7); Albumin/Globulin Ratio 1.7 (1-3); Alkaline Phosphatase 94 U/L (35-149); Anion Gap 12 mmol/L (2-16); Blood Urea Nitrogen 25 mg/dL (6-24); C Reactive Protein 4.18 mg/L (<8.01); CO2 Carbon Dioxide 24 mmol/L (22-32); Calcium 8.9 mg/dL (8.6-10.3); Chloride 94 mmol/L (101-111); Creatinine, Serum 0.94 mg/dL (0.67-1.17); Globulin 2.3 g/dL (2-4); Glucose 293 mg/dL (70-100); Lipase < 10 U/L (11.0-82.0); Magnesium 1.8 mg/dL (1.9-2.7); Sodium 130 mmol/L (135-145); Total Bilirubin 0.7 mg/dL (0.2-1.0); Total Protein 6.1 g/dL (6.4-8.9); eGFR CKD-EPI 91.7 (>60)
[2024-05-01] MEDS ORDERED: Iodixanol 320 (CONTRAST) 100 ML SDV IV ONE (13:26)
[2024-05-01 13:59] LABS: Urine Appearance Clear; Urine Bilirubin Negative (Negative); Urine Blood 1+ (Negative); Urine Color Colorless; Urine Glucose 3+ (>=300 mg/dL) (Negative); Urine Ketones 1+ (Negative); Urine Nitrite Negative (Negative); Urine Protein Trace (Negative); Urine Specific Gravity 1.011 (1.002-1.030); Urine Urobilinogen Negative (Negative); Urine pH 5.5 (5.0-8.0)
[2024-05-01 14:24] LABS: High Sensitivity Troponin 1 Hr 27 pg/mL (<20)
[2024-05-01 14:44] LABS: Urine Bacteria Absent /HPF (Absent); Urine Red Blood Cell 1+(3-5/hpf) /HPF (0-Trace); Urine White Blood Cell Trace(0-5/hpf) /HPF (0-Trace)
[2024-05-01] MEDS: Piperacillin/Tazobac 3.375 BAG 3.375 GM/100 ML BAG IV ONE (15:29)
[2024-05-01 16:14] LABS: % Iron Saturation 43 % (15-55); .Transferrin 199 mg/dL (203-362); Iron 121 ug/dL (50-212); Total Iron Binding Capacity 279 mcg/dL (250-450); Unsaturated Iron Binding 158 ug/dL
[2024-05-01] MEDS ORDERED: Dextrose 50% Syringe 50 ml 25 GM/50 ML SYRINGE IV PUSH PRN (16:26)
[2024-05-01 16:34] LABS: Ferritin 323.4 ng/mL (24-336)
[2024-05-01 16:37] LABS: Urine Benzodiazepine Screen None Detected (None Detect); Urine Cannabinoids Screen Presumptive Positive (None Detect); Urine Opiates Screen Presumptive Positive (None Detect)
[2024-05-01] MEDS ORDERED: Nicotine GUM 4MG FRUIT FLAVOR PO PRN (17:17)
[2024-05-01] MEDS ORDERED: Sulfur Hexaflouride MICROSPHR 25 MG VIAL IV PRN (17:28)
[2024-05-01 19:25] LABS: Cholesterol 227 mg/dL; HDL Cholesterol 44.3 mg/dL; LDL Cholesterol 144 mg/dL; Triglycerides 195 mg/dL
[2024-05-01] MEDS: Enoxaparin 40 MG/0.4 ML SYR SUBCUT SCH (21:55)
[2024-05-01] MEDS: Nicotine PATCH 21 MG/24 HR PATCH TRANSDERM SCH (22:24)
[2024-05-01] MEDS: Dextrose 50% Syringe 50 ml 25 GM/50 ML SYRINGE IV PUSH PRN (23:02)
[2024-05-01] MEDS: Acetaminophen IV 1 GM/100ML 1,000 MG/100 ML BAG IV PRN (23:25)
[2024-05-01] MEDS: Insulin GLARGINE 100 un/ml 10 ml VIAL SUBCUT SCH (23:34)
[2024-05-02 05:56] LABS: ABS Eosinophils 0.2 10^3/uL (0.0-0.5); ABS Lymphocytes 1.5 10^3/uL (1.0-4.8); ABS Monocytes 0.7 10^3/uL (0.0-1.1); ABS Neutrophils 8.5 10^3/uL (1.5-7.6); ABS Nucleated RBC 0.01 10^3/ul; Eosinophil % 1.4 %; Hematocrit 45.2 % (38-53); Hemoglobin 15.9 g/dL (13.2-16.3); Lymphocyte % 13.7 %; Mean Corpuscular Hemoglobin 31.8 pg (27-33); Mean Corpuscular Hgb Conc 35.2 g/dL (31-36); Mean Corpuscular Volume 90.3 fL (80-97); Mean Platelet Volume 9.1 fL (7.5-11.2); Nucleated Red Blood Cells % 0.1 %/100WBC (0.0-0.8); Platelet Count 200 10^3/uL (150-450); Red Blood Count 5.01 10^6/uL (4.06-5.63); Red Cell Distribution Width 14.3 % (12-17); White Blood Count 10.9 10^3/uL (3.6-10.2)
[2024-05-02 06:17] LABS: Albumin 3.4 g/dL (3.5-5.7); Albumin/Globulin Ratio 1.5 (1-3); Calcium 8.8 mg/dL (8.6-10.3); Creatinine, Serum 0.99 mg/dL (0.67-1.17); Globulin 2.3 g/dL (2-4); Magnesium 1.8 mg/dL (1.9-2.7); Potassium 3.7 mmol/L (3.5-5.0); Total Bilirubin 0.6 mg/dL (0.2-1.0); Total Protein 5.7 g/dL (6.4-8.9); eGFR CKD-EPI 86.1 (>60)
[2024-05-02] MEDS: Nicotine PATCH 21 MG/24 HR PATCH TRANSDERM SCH (09:59)
[2024-05-02] MEDS ORDERED: Zosyn per Pharmacy NOTE FOLLOW UP SCH (10:00)
[2024-05-02] MEDS: DULoxetine DR 30 mg CAP PO SCH (10:00)
[2024-05-02] MEDS: ZOSYN 3.375 GM x ONE DOSE over 30 miuntes IV (11:13)
[2024-05-02 11:38] LABS: High Sensitivity Troponin 1 Hr 20 pg/mL (<20)
[2024-05-02] MEDS: NS 0.9% 1000 ml BAG 500 ML IV SCH (12:45)
[2024-05-02] MEDS: Piperacillin/Tazobac 3.375 BAG 3.375 GM/100 ML BAG IV SCH (15:36)
[2024-05-02] MEDS: Morphine 2 MG/ML SYRINGE IV PRN (15:40)
[2024-05-02] MEDS: Ondansetron 4 mg VIAL 2 MG/ML 2 ml VIAL IV PRN (17:02)
[2024-05-02] MEDS: Insulin GLARGINE 100 un/ml 10 ml VIAL SUBCUT SCH (20:07)
[2024-05-03 08:08] LABS: ABS Eosinophils 0.2 10^3/uL (0.0-0.5); ABS Lymphocytes 1.7 10^3/uL (1.0-4.8); ABS Monocytes 0.5 10^3/uL (0.0-1.1); ABS Neutrophils 6.7 10^3/uL (1.5-7.6); Eosinophil % 1.8 %; Hematocrit 47.3 % (38-53); Hemoglobin 16.6 g/dL (13.2-16.3); Lymphocyte % 18.8 %; Mean Corpuscular Hemoglobin 31.5 pg (27-33); Mean Corpuscular Hgb Conc 35.1 g/dL (31-36); Mean Corpuscular Volume 89.8 fL (80-97); Mean Platelet Volume 9.4 fL (7.5-11.2); Nucleated Red Blood Cells % 0.1 %/100WBC (0.0-0.8); Platelet Count 199 10^3/uL (150-450); Red Blood Count 5.26 10^6/uL (4.06-5.63); Red Cell Distribution Width 14.4 % (12-17); White Blood Count 9.1 10^3/uL (3.6-10.2)
[2024-05-03 09:08] LABS: Calcium 8.2 mg/dL (8.6-10.3); Creatinine, Serum 0.96 mg/dL (0.67-1.17); Magnesium 1.8 mg/dL (1.9-2.7); eGFR CKD-EPI 89.4 (>60)
[2024-05-03 09:42] VITALS: BP 172/104
== END 2024-05-03 10:55 | disposition left against medical advice (07) ==
LOC: EDHOLD 11:24 → ED 11:24 → SUATTDRO 16:15 → MEDTELE 20:29
PROVIDERS: ADMIT Internal Medicine; ATTEND Family Medicine

== ENCOUNTER 2024-05-09 12:30 | Inpatient (IN) ==
[2024-05-09] MEDS: NS 0.9% 1000 ml BAG 2,000 ML IV ONE (12:44)
[2024-05-09 12:48] LABS: Hematocrit 49.9 % (38-53); Hemoglobin 15.1 g/dL (13.2-16.3); Mean Corpuscular Hemoglobin 30.6 pg (27-33); Mean Corpuscular Hgb Conc 30.2 g/dL (31-36); Mean Platelet Volume 10.3 fL (7.5-11.2); Platelet Count 395 10^3/uL (150-450); Red Blood Count 4.94 10^6/uL (4.06-5.63); Red Cell Distribution Width 15.9 % (12-17); White Blood Count 34.7 10^3/uL (3.6-10.2)
[2024-05-09 12:55] LABS: INR 1.04 (0.85-1.14)
[2024-05-09 13:10] LABS: PO2 Arterial 181 mmHg (80-100)
[2024-05-09 13:12] LABS: PCO2 Arterial <20 mmHg (35-45)
[2024-05-09] MEDS ORDERED: Ketamine HCL 50 mg/ml 10 ml VIAL (500 MG) ONE (13:12)
[2024-05-09 13:13] LABS: High Sens Troponin Baseline 67 pg/mL (<20)
[2024-05-09] MEDS: Ketamine HCL 50 mg/ml 10 ml VIAL (500 MG) IV ONE ×2 (13:14→13:33)
[2024-05-09 13:22] LABS: ABS Basophils 0.3 10^3/uL (0.0-0.1); ABS Eosinophils 0.1 10^3/uL (0.0-0.5); ABS Lymphocytes 2.1 10^3/uL (1.0-4.8); ABS Monocytes 1.7 10^3/uL (0.0-1.1); ABS Neutrophils 30.4 10^3/uL (1.5-7.6); ABS Nucleated RBC 0.02 10^3/ul; Eosinophil % 0.3 %; Nucleated Red Blood Cells % 0.1 %/100WBC (0.0-0.8)
[2024-05-09 13:27] LABS: CO2 Carbon Dioxide < 7 mmol/L (22-32)
[2024-05-09 13:28] LABS: Calcium 9.8 mg/dL (8.6-10.3); Chloride 80 mmol/L (101-111); Sodium 128 mmol/L (135-145)
[2024-05-09 13:29] LABS: ALT 29 U/L (7-52); Albumin/Globulin Ratio 1.7 (1-3); Alkaline Phosphatase 108 U/L (35-149); Blood Urea Nitrogen 48 mg/dL (6-24); C Reactive Protein 4.47 mg/L (<8.01); Creatinine, Serum 2.71 mg/dL (0.67-1.17); Globulin 2.3 g/dL (2-4); Lipase 35 U/L (11.0-82.0); Total Bilirubin 0.5 mg/dL (0.2-1.0); Total Protein 6.3 g/dL (6.4-8.9); eGFR CKD-EPI 25.7 (>60)
[2024-05-09 13:34] LABS: Glucose 1010 mg/dL (70-100)
[2024-05-09] MEDS: Lactated Ringers 1000 ml BAG IV.FLUID IV ONE ×2 (13:34→14:13)
[2024-05-09] MEDS: Piperacillin/Tazobac 3.375 BAG 3.375 GM/100 ML BAG IV ONE (13:52)
[2024-05-09 14:03] LABS: Creatine Kinase 121 U/L (10-223)
[2024-05-09 14:13] LABS: High Sensitivity Troponin 1 Hr 52 pg/mL (<20); Urine Benzodiazepine Screen None Detected (None Detect); Urine Cannabinoids Screen Presumptive Positive (None Detect); Urine Opiates Screen None Detected (None Detect)
[2024-05-09 14:13] LABS: Urine Appearance Turbid; Urine Bacteria Absent /HPF (Absent); Urine Bilirubin Negative (Negative); Urine Blood 2+ (Negative); Urine Color Yellow; Urine Glucose 4+ (>=1000 mg/dL) (Negative); Urine Ketones 2+ (Negative); Urine Nitrite Negative (Negative); Urine Oval Fat Bodies Present /HPF (Absent); Urine Protein 1+ (>=30 mg/dL) (Negative); Urine Red Blood Cell 1+(3-5/hpf) /HPF (0-Trace); Urine Squamous Epithelial Cell Present /HPF (Absent); Urine Urobilinogen Negative (Negative); Urine White Blood Cell 2+(11-20/hpf) /HPF (0-Trace)
[2024-05-09 14:23] LABS: Potassium, Whole Blood 5.8 mmol/L (3.4-4.5)
[2024-05-09 14:24] LABS: Urine Benzodiazepine Screen None Detected (None Detect); Urine Buprenorphine Screen None Detected (None Detect); Urine Cannabinoids Screen Presumptive Positive (None Detect); Urine Fentanyl Screen None Detected (None Detect); Urine Hydrocodone Screen None Detected (None Detect); Urine Opiates Screen None Detected (None Detect)
[2024-05-09] MEDS ORDERED: Dextrose 50% Syringe 50 ml 25 GM/50 ML SYRINGE IV PUSH PRN (14:24)
[2024-05-09] MEDS: Insulin Infusion 100unit/100mL 100 UNIT/100 ML BAG IV SCH (15:11)
[2024-05-09] MEDS: DEXMEDETOMIDINE IV SCH (15:20)
[2024-05-09] MEDS: NORMOSOL-R pH 7.4 1000 mL BAG 1,000 ML IV ONE (15:41)
[2024-05-09] MEDS: Lactated Ringers 1000 ml BAG 1,000 ML IV ONE (15:54)
[2024-05-09] MEDS ORDERED: NORMOSOL-R pH 7.4 1000 mL BAG 1,000 ML IV SCH (16:00)
[2024-05-09] MEDS ORDERED: Zosyn per Pharmacy NOTE FOLLOW UP SCH (16:00)
[2024-05-09 16:06] LABS: Magnesium 2.8 mg/dL (1.9-2.7); Phosphorus 10.2 mg/dL (2.5-5.0)
[2024-05-09] MEDS: ZOSYN 3.375 GM Q8H per EXTENDED INFUSION IV SCH (18:04)
[2024-05-09 19:34] LABS: Creatinine, Serum 2.27 mg/dL (0.67-1.17); Magnesium 2.5 mg/dL (1.9-2.7); Phosphorus 6.9 mg/dL (2.5-5.0); Potassium 4.4 mmol/L (3.5-5.0); eGFR CKD-EPI 31.8 (>60)
[2024-05-09 20:06] LABS: Glucose Confirmatory 471 mg/dL (70-100)
[2024-05-09] MEDS: Lactated Ringers 1000 ml BAG 1,000 ML IV SCH (21:00)
[2024-05-09] MEDS: Heparin 5000 UNITS/ML 1 mL VIAL SUBCUT SCH (21:21)
[2024-05-09 21:29] LABS: Glucose Confirmatory 404 mg/dL (70-100)
[2024-05-09] MEDS ORDERED: NOREPINEPHRINE IV SCH (22:00)
[2024-05-09] MEDS ORDERED: SODIUM CHLORIDE IV SCH (22:00)
[2024-05-09] MEDS: SODIUM CHLORIDE IV SCH (22:24)
[2024-05-09] MEDS: NOREPINEPHRINE IV SCH (22:24)
[2024-05-09 23:16] LABS: Creatinine, Serum 2.12 mg/dL (0.67-1.17); Magnesium 2.3 mg/dL (1.9-2.7); Phosphorus 4.5 mg/dL (2.5-5.0); Potassium 4.4 mmol/L (3.5-5.0); eGFR CKD-EPI 34.5 (>60)
[2024-05-10] MEDS: D5LR 1000 ml BAG 1,000 ML IV SCH (02:00)
[2024-05-10 03:30] LABS: Anion Gap 8 mmol/L (2-16); Blood Urea Nitrogen 43 mg/dL (6-24); CO2 Carbon Dioxide 25 mmol/L (22-32); Calcium 8.3 mg/dL (8.6-10.3); Chloride 105 mmol/L (101-111); Creatinine, Serum 1.86 mg/dL (0.67-1.17); Glucose 204 mg/dL (70-100); Sodium 138 mmol/L (135-145); eGFR CKD-EPI 40.4 (>60)
[2024-05-10 04:45] LABS: Magnesium 2.2 mg/dL (1.9-2.7); Phosphorus 3.8 mg/dL (2.5-5.0); Potassium Redraw 4.2 mmol/L (3.5-5.0)
[2024-05-10 05:26] LABS: Urine Appearance Extra Turbid; Urine Bilirubin Negative (Negative); Urine Blood 3+ (Negative); Urine Color Yellow; Urine Glucose Trace (Negative); Urine Ketones Trace (Negative); Urine Nitrite Negative (Negative); Urine Protein 1+ (>=30 mg/dL) (Negative); Urine Urobilinogen Negative (Negative); Urine pH 5.5 (5.0-8.0)
[2024-05-10] MEDS: Insulin GLARGINE 100 un/ml 10 ml VIAL SUBCUT SCH (05:27)
[2024-05-10 05:33] LABS: Urine Bacteria Absent /HPF (Absent); Urine Red Blood Cell 3+(>10/hpf) /HPF (0-Trace); Urine Squamous Epithelial Cell Present /HPF (Absent); Urine Uric Acid Crystals Present /HPF (Absent); Urine White Blood Cell 3+(>20/hpf) /HPF (0-Trace)
[2024-05-10 06:32] LABS: Hematocrit 36.1 % (38-53); Hemoglobin 12.6 g/dL (13.2-16.3); Mean Corpuscular Hemoglobin 31.2 pg (27-33); Mean Corpuscular Hgb Conc 34.8 g/dL (31-36); Mean Corpuscular Volume 89.7 fL (80-97); Platelet Count 220 10^3/uL (150-450); Red Blood Count 4.02 10^6/uL (4.06-5.63); Red Cell Distribution Width 14.5 % (12-17)
[2024-05-10 06:37] LABS: ABS Basophils 0.1 10^3/uL (0.0-0.1); ABS Lymphocytes 1.8 10^3/uL (1.0-4.8); ABS Monocytes 1.4 10^3/uL (0.0-1.1); ABS Neutrophils 21.7 10^3/uL (1.5-7.6); ABS Nucleated RBC 0.01 10^3/ul; Eosinophil % 0.1 %; Lymphocyte % 7.2 %
[2024-05-10] MEDS ORDERED: Dextrose 50% Syringe 50 ml 25 GM/50 ML SYRINGE IV PUSH PRN ×3 (06:45→18:00)
[2024-05-10 06:49] LABS: Creatinine, Serum 1.68 mg/dL (0.67-1.17); Phosphorus 3.4 mg/dL (2.5-5.0); Potassium 3.7 mmol/L (3.5-5.0); eGFR CKD-EPI 45.7 (>60)
[2024-05-10] MEDS: D10W 1000 ml BAG 1,000 ML IV SCH (08:26)
[2024-05-10 10:33] LABS: Albumin/Globulin Ratio 1.8 (1-3); Calcium 7.5 mg/dL (8.6-10.3); Creatinine, Serum 1.57 mg/dL (0.67-1.17); Globulin 1.7 g/dL (2-4); Potassium 4.1 mmol/L (3.5-5.0); Total Bilirubin 0.4 mg/dL (0.2-1.0); Total Protein 4.7 g/dL (6.4-8.9); eGFR CKD-EPI 49.5 (>60)
[2024-05-10 16:00] LABS: Creatinine, Serum 1.51 mg/dL (0.67-1.17); Magnesium 1.8 mg/dL (1.9-2.7); Phosphorus 2.5 mg/dL (2.5-5.0); eGFR CKD-EPI 51.9 (>60)
[2024-05-10 16:03] LABS: ABS Lymphocytes 0.7 10^3/uL (1.0-4.8); ABS Monocytes 0.5 10^3/uL (0.0-1.1); ABS Neutrophils 16.2 10^3/uL (1.5-7.6); Eosinophil % 0.1 %; Hematocrit 38.7 % (38-53); Hemoglobin 13.2 g/dL (13.2-16.3); Lymphocyte % 4.1 %; Mean Corpuscular Hemoglobin 31.2 pg (27-33); Mean Corpuscular Hgb Conc 34.1 g/dL (31-36); Mean Corpuscular Volume 91.5 fL (80-97); Mean Platelet Volume 9.4 fL (7.5-11.2); Platelet Count 153 10^3/uL (150-450); Red Blood Count 4.23 10^6/uL (4.06-5.63); Red Cell Distribution Width 14.2 % (12-17); White Blood Count 17.6 10^3/uL (3.6-10.2)
[2024-05-10 18:09] LABS: Glucose Confirmatory 435 mg/dL (70-100)
[2024-05-10] MEDS: Acetaminophen IV 1 GM/100ML 1,000 MG/100 ML BAG IV PRN (20:13)
[2024-05-10] MEDS ORDERED: Sulfur Hexaflouride MICROSPHR 25 MG VIAL IV PRN (20:51)
[2024-05-10 21:01] LABS: Calcium 8.1 mg/dL (8.6-10.3); Creatinine, Serum 1.4 mg/dL (0.67-1.17); Magnesium 1.8 mg/dL (1.9-2.7); Potassium 3.7 mmol/L (3.5-5.0); eGFR CKD-EPI 56.8 (>60)
[2024-05-10] MEDS: Heparin DRIP 25,000 UNITS BAG 25,000 UNITS/250 ML BAG IV SCH (21:10)
[2024-05-10] MEDS: Heparin 5000 UNITS/ML 1 mL VIAL IV SCH (21:14)
[2024-05-10 21:38] LABS: High Sensitivity Troponin 1 Hr 2920 pg/mL (<20)
[2024-05-10] MEDS: Magnesium Sulfate 2 gm BAG 2 GM/50 ML BAG IVPB ONE (23:58)
[2024-05-11 05:22] LABS: ABS Lymphocytes 1.2 10^3/uL (1.0-4.8); ABS Monocytes 0.7 10^3/uL (0.0-1.1); ABS Neutrophils 14.8 10^3/uL (1.5-7.6); Eosinophil % 0.1 %; Hematocrit 35.7 % (38-53); Hemoglobin 12.1 g/dL (13.2-16.3); Lymphocyte % 7.1 %; Mean Corpuscular Hgb Conc 33.8 g/dL (31-36); Mean Corpuscular Volume 91.9 fL (80-97); Mean Platelet Volume 9.3 fL (7.5-11.2); Platelet Count 141 10^3/uL (150-450); Red Blood Count 3.89 10^6/uL (4.06-5.63); Red Cell Distribution Width 14.9 % (12-17); White Blood Count 16.7 10^3/uL (3.6-10.2)
[2024-05-11 06:18] LABS: Calcium 7.5 mg/dL (8.6-10.3); Creatinine, Serum 1.16 mg/dL (0.67-1.17); Magnesium 2.2 mg/dL (1.9-2.7); Potassium 4.1 mmol/L (3.5-5.0); eGFR CKD-EPI 71.2 (>60)
[2024-05-11] MEDS ORDERED: Dextrose 50% Syringe 50 ml 25 GM/50 ML SYRINGE IV PUSH PRN (07:45)
[2024-05-11] MEDS: Insulin GLARGINE 100 un/ml 10 ml VIAL SUBCUT ONE (07:52)
[2024-05-11] MEDS ORDERED: Morphine 2 MG/ML SYRINGE IV PRN (08:28)
[2024-05-11] MEDS: Ondansetron 4 mg VIAL 2 MG/ML 2 ml VIAL IV PRN (10:08)
[2024-05-11] MEDS: Morphine 2 MG/ML SYRINGE IV PRN ×2 (10:08→18:51)
[2024-05-11] MEDS: Nitro 2% OINT (Nitroglycerin) 1 INCH/PAK TOPICAL ONE (10:47)
[2024-05-11 12:07] LABS: Calcium 7.7 mg/dL (8.6-10.3); Creatinine, Serum 1.19 mg/dL (0.67-1.17); eGFR CKD-EPI 69.1 (>60)
[2024-05-11] MEDS: Pantoprazole VIAL 40 MG VIAL IV ONE (17:47)
[2024-05-11 18:35] LABS: ABS Basophils 0.1 10^3/uL (0.0-0.1); ABS Lymphocytes 1.1 10^3/uL (1.0-4.8); ABS Monocytes 0.3 10^3/uL (0.0-1.1); ABS Neutrophils 10.6 10^3/uL (1.5-7.6); Eosinophil % 0.3 %; Hematocrit 37.8 % (38-53); Hemoglobin 12.8 g/dL (13.2-16.3); Lymphocyte % 9.2 %; Mean Corpuscular Hemoglobin 30.7 pg (27-33); Mean Corpuscular Volume 90.3 fL (80-97); Mean Platelet Volume 8.9 fL (7.5-11.2); Platelet Count 148 10^3/uL (150-450); Red Blood Count 4.18 10^6/uL (4.06-5.63); Red Cell Distribution Width 14.9 % (12-17); White Blood Count 12.1 10^3/uL (3.6-10.2)
[2024-05-11 19:18] LABS: Calcium 7.5 mg/dL (8.6-10.3); Creatinine, Serum 1.16 mg/dL (0.67-1.17); Phosphorus 2.1 mg/dL (2.5-5.0); Potassium 3.5 mmol/L (3.5-5.0); eGFR CKD-EPI 71.2 (>60)
[2024-05-11] MEDS: nitroGLYCERIN DRIP 50,000 MCG/250 ML BTL IV SCH (19:49)
[2024-05-11] MEDS: Pantoprazole VIAL 40 MG VIAL IV SCH (19:53)
[2024-05-12 04:32] LABS: ABS Basophils 0.1 10^3/uL (0.0-0.1); ABS Lymphocytes 1.2 10^3/uL (1.0-4.8); ABS Monocytes 0.4 10^3/uL (0.0-1.1); ABS Neutrophils 10.6 10^3/uL (1.5-7.6); ABS Nucleated RBC 0.01 10^3/ul; Eosinophil % 0.4 %; Hematocrit 34.6 % (38-53); Hemoglobin 12.1 g/dL (13.2-16.3); Mean Corpuscular Hemoglobin 31.7 pg (27-33); Mean Corpuscular Hgb Conc 34.9 g/dL (31-36); Mean Corpuscular Volume 90.7 fL (80-97); Mean Platelet Volume 9.1 fL (7.5-11.2); Nucleated Red Blood Cells % 0.1 %/100WBC (0.0-0.8); Platelet Count 155 10^3/uL (150-450); Red Blood Count 3.82 10^6/uL (4.06-5.63); Red Cell Distribution Width 14.8 % (12-17); White Blood Count 12.4 10^3/uL (3.6-10.2)
[2024-05-12 05:25] LABS: Potassium 4.3 mmol/L (3.5-5.0)
[2024-05-12 05:26] LABS: Calcium 7.5 mg/dL (8.6-10.3); Creatinine, Serum 1.12 mg/dL (0.67-1.17); eGFR CKD-EPI 74.3 (>60)
[2024-05-12] MEDS: Insulin GLARGINE 100 un/ml 10 ml VIAL SUBCUT SCH (06:10)
[2024-05-12] MEDS ORDERED: Heparin 1,000 UNIT/ML 10 ml (10,000 UNITS) CATHLAB/DIALYSIS ONE (09:39)
[2024-05-12] MEDS ORDERED: VERAPAMIL 2.5 MG/ML 2 ML VIAL ** 5 mg/2 ml ONE (09:40)
[2024-05-12] MEDS ORDERED: Lidocaine 1% MPF 5 ML VIAL ONE (09:40)
[2024-05-12] MEDS ORDERED: Heparin 2 UNITS/ML 1000 mls 2,000 ML IV ONE (09:40)
[2024-05-12] MEDS ORDERED: nitroGLYCERIN DRIP 50,000 MCG/250 ML BTL ONE (09:41)
[2024-05-12] MEDS ORDERED: Iohexol 350 (CONTRAST) 200 ML MDV IV ONE (09:41)
[2024-05-12] MEDS ORDERED: fentaNYL 100 mcg/2 ml 50 MCG/ML VIAL ONE (09:59)
[2024-05-12] MEDS ORDERED: Midazolam 5 mg/5 ml VIAL 1 mg/ml 5 ml VIAL (5 mg) ONE (09:59)
[2024-05-12] MEDS: NS 0.9% 1000 ml BAG 1,000 ML IV SCH (11:09)
[2024-05-12] MEDS: Enoxaparin 40 MG/0.4 ML SYR SUBCUT SCH (21:22)
[2024-05-13 06:45] LABS: Calcium 7.7 mg/dL (8.6-10.3); Creatinine, Serum 1.01 mg/dL (0.67-1.17); Potassium 3.9 mmol/L (3.5-5.0); eGFR CKD-EPI 84.1 (>60)
[2024-05-13 07:20] LABS: ABS Basophils 0.1 10^3/uL (0.0-0.1); ABS Eosinophils 0.2 10^3/uL (0.0-0.5); ABS Lymphocytes 1.8 10^3/uL (1.0-4.8); ABS Monocytes 0.4 10^3/uL (0.0-1.1); ABS Neutrophils 8.5 10^3/uL (1.5-7.6); ABS Nucleated RBC 0.01 10^3/ul; Eosinophil % 1.4 %; Hematocrit 40.2 % (38-53); Hemoglobin 13.8 g/dL (13.2-16.3); Lymphocyte % 16.6 %; Mean Corpuscular Hemoglobin 31.4 pg (27-33); Mean Corpuscular Hgb Conc 34.2 g/dL (31-36); Mean Corpuscular Volume 91.8 fL (80-97); Mean Platelet Volume 9.1 fL (7.5-11.2); Nucleated Red Blood Cells % 0.1 %/100WBC (0.0-0.8); Platelet Count 144 10^3/uL (150-450); Red Blood Count 4.38 10^6/uL (4.06-5.63); Red Cell Distribution Width 14.3 % (12-17); White Blood Count 10.9 10^3/uL (3.6-10.2)
[2024-05-13] MEDS: Iohexol 350 (CONTRAST) 500 ML MDV IV ONE (20:07)
[2024-05-14 11:26] LABS: ABS Eosinophils 0.1 10^3/uL (0.0-0.5); ABS Lymphocytes 1.3 10^3/uL (1.0-4.8); ABS Monocytes 0.4 10^3/uL (0.0-1.1); ABS Neutrophils 6.2 10^3/uL (1.5-7.6); ABS Nucleated RBC 0.02 10^3/ul; Eosinophil % 1.8 %; Lymphocyte % 16.5 %; Mean Corpuscular Hemoglobin 31.2 pg (27-33); Mean Corpuscular Hgb Conc 34.2 g/dL (31-36); Mean Corpuscular Volume 91.2 fL (80-97); Mean Platelet Volume 8.6 fL (7.5-11.2); Nucleated Red Blood Cells % 0.2 %/100WBC (0.0-0.8); Platelet Count 143 10^3/uL (150-450); Red Blood Count 3.84 10^6/uL (4.06-5.63); Red Cell Distribution Width 14.3 % (12-17); White Blood Count 8.1 10^3/uL (3.6-10.2)
[2024-05-14] MEDS: Furosemide 40 mg/4 ml IV VIAL IV ONE (11:34)
[2024-05-14 11:52] LABS: Creatinine, Serum 1.02 mg/dL (0.67-1.17); Magnesium 1.8 mg/dL (1.9-2.7); eGFR CKD-EPI 83.1 (>60)
[2024-05-14] MEDS: Magnesium Sulfate 2 gm BAG 2 GM/50 ML BAG IVPB ONE (14:39)
[2024-05-15 06:35] LABS: Glucose Confirmatory 469 mg/dL (70-100)
[2024-05-15 07:01] LABS: Calcium 7.6 mg/dL (8.6-10.3); Creatinine, Serum 1.18 mg/dL (0.67-1.17); Magnesium 2.1 mg/dL (1.9-2.7); Potassium 4.8 mmol/L (3.5-5.0); eGFR CKD-EPI 69.8 (>60)
[2024-05-15 08:57] LABS: ABS Basophils 0.1 10^3/uL (0.0-0.1); ABS Eosinophils 0.2 10^3/uL (0.0-0.5); ABS Lymphocytes 1.8 10^3/uL (1.0-4.8); ABS Monocytes 0.4 10^3/uL (0.0-1.1); ABS Neutrophils 6.9 10^3/uL (1.5-7.6); Eosinophil % 2.6 %; Hematocrit 39.7 % (38-53); Hemoglobin 13.8 g/dL (13.2-16.3); Mean Corpuscular Hemoglobin 31.5 pg (27-33); Mean Corpuscular Hgb Conc 34.7 g/dL (31-36); Mean Corpuscular Volume 90.8 fL (80-97); Mean Platelet Volume 9.2 fL (7.5-11.2); Platelet Count 212 10^3/uL (150-450); Red Blood Count 4.37 10^6/uL (4.06-5.63); Red Cell Distribution Width 14.6 % (12-17); White Blood Count 9.4 10^3/uL (3.6-10.2)
[2024-05-15 09:36] LABS: Calcium 8.7 mg/dL (8.6-10.3); Creatinine, Serum 1.17 mg/dL (0.67-1.17); Potassium 4.4 mmol/L (3.5-5.0); eGFR CKD-EPI 70.5 (>60)
[2024-05-16] MEDS: Influenza Vaccine *TRI* 2024-25* 0.5 ML SYRINGE IM ONE (10:01)
[2024-05-16 12:21] VITALS: BP 158/90
== END 2024-05-16 14:20 | disposition home or self-care (01) | DRG 871 ==
LOC: ED 12:30 → SUATTDRO 14:55 → EDHOLD 14:55 → ICU 14:59 → MEDTELE 16:40
PROVIDERS: ADMIT Internal Medicine Critical Care Medicine; ATTEND Student in an Organized Health Care Education/Training Program